=== PATIENT | female | born 1935 | race Caucasian/White ===

== ENCOUNTER → 2016-12-07 | Outpatient (CLI) | payer MEDICARE, OTHER ==
[~2016-12-07] MED LIST: ASPI325T PO; CODCAP PO; KEFL500C7 PO; LISI10TA4 PO; LORT5TAB PO
--- NOTE | 2016-12-07 09:34 | REP ---
ULTRASOUND ABDOMINAL AORTA: Real-time sonographic evaluation of the abdominal aorta performed. There is no sonographic evidence of abdominal aortic aneurysm. Maximum AP diameter of the proximal abdominal aorta is 2.2 cm with same diameter in the mid abdominal aorta. Distal abdominal aorta just above the bifurcation measuring 2.4 cm in AP dimension. The right common iliac artery measures 1.4 x 1.3 cm and left common iliac artery 1.1 x 1.3 cm. IMPRESSION: No sonographic evidence of abdominal aortic aneurysm. Signed by Talib Ocasio MD 12/07/2016 04:13 P
== END ==
LOC: M RAD 06:15
PROVIDERS: ATTEND Family Medicine
DX: Z82.49 Family history of ischemic heart disease and other diseases of the circulatory system (principal); Z87.891 Personal history of nicotine dependence

== ENCOUNTER → 2017-01-04 | Outpatient (REF) | payer MEDICARE, OTHER ==
[2017-01-04 14:40] LABS: ALBUMIN 3.7 GM/DL (3.2-5.2); ALBUMIN/GLOBULIN RATIO 1.32 (1.00-1.93); BILIRUBIN,TOTAL 0.3 MG/DL (0.2-1.0); CALCIUM LEVEL 8.8 MG/DL (8.8-10.2); CREATININE FOR GFR 1.06 MG/DL (0.55-1.02); POTASSIUM SERUM 3.8 MEQ/L (3.5-5.1); TOTAL PROTEIN 6.5 GM/DL (6.4-8.2)
== END ==
LOC: M SFHCPLAZ 12:05
PROVIDERS: ATTEND Family Medicine
DX: R14.0 Abdominal distension (gaseous) (principal); I87.329 Chronic venous hypertension (idiopathic) with inflammation of unspecified lower extremity; Z85.3 Personal history of malignant neoplasm of breast; I89.0 Lymphedema, not elsewhere classified
CPT/HCPCS: 80053; G0463

== ENCOUNTER → 2017-01-05 | Outpatient (CLI) | payer MEDICARE, OTHER ==
[~2017-01-05] MED LIST changes: +GASTROGRAFIN SOLUTION 30ML (Q9963) As Ordered ONE; +ISOVUE-370 76% 100ML VIAL (Q9967) As Ordered ONE
--- NOTE | 2017-01-05 19:42 | REP ---
CT study abdomen and pelvis without and with IV contrast: With oral contrast: History: Abdominal distension. CT contrast dose: 100 mL of Isovue [address] findings: Digital preliminary chamber magistrate radiograph demonstrates an unremarkable bowel gas pattern. The lung bases are essentially clear. Minimal linear fibrosis on the left. The liver and the spleen are normal in size homogeneous in texture. No adrenal lesion is seen on either side. No pancreatic abnormality is observed. The gallbladder has a Phrygian cap morphology but there is no CT evidence of stone or mass lesion. The kidneys enhance symmetrically and appear morphologically intact. Tiny cortical cysts are seen bilaterally and some vascular calcification is observed. Diffuse vascular calcification is seen in the aorta and its other branches. A normal appendix is observed in the right lower quadrant. Small and large intestinal bowel loops are unremarkable in the upper abdomen. There is no evidence of free intraperitoneal air, abdominal mass or fluid collection. There is extensive diverticulosis in the sigmoid colon. There is no CT evidence of acute diverticulitis. Some large peripherally extending diverticula are seen. Small air-fluid level is seen in large and small intestinal bowel loops in the central abdomen but no obstructive lesion is seen. No abdominal wall defect is observed. Urinary bladder is intact. No uterine or adnexal pathology is appreciated. Impression: Extensive sigmoid colonic diverticulosis without CT evidence of diverticulitis. Otherwise no significant abdominal or pelvic abnormality seen. Signed by Calvin Sidhu MD 01/06/2017 08:56 A
== END ==
LOC: M RAD 15:39
PROVIDERS: ATTEND Family Medicine
DX: K57.30 Diverticulosis of large intestine without perforation or abscess without bleeding (principal)
CPT/HCPCS: 74178; Q9963; Q9967

== ENCOUNTER → 2017-01-12 | Outpatient (CLI) | payer MEDICARE, OTHER ==
[~2017-01-12] MED LIST changes: -GASTROGRAFIN SOLUTION 30ML (Q9963) As Ordered ONE; -ISOVUE-370 76% 100ML VIAL (Q9967) As Ordered ONE
--- NOTE | 2017-01-13 10:41 | DEXA ---
AP SPINE L1 - L4 1.196 0.0 1.5 LT FEMUR TOTAL 0.754 -2.0 -0.2 RT FEMUR TOTAL 0.660 -2.8 -0.9 TOTAL BODY TOTAL OTHER DUAL FEMUR FRAX* ASSESSMENT Risk factors: None. 10 year probability of fracture Major osteoporotic fracture 13.5 % Hip fracture 3.5 % COMMENTS: Normal bone densitometry of the spine. There is low bone density of the hips. The density of the spine has increased 15.9% since 10/13/2002. The density of the left hip has decreased 10.8% since 10/13/2002. The density of the right hip has decreased 15.9% since 10/13/2002. The increased density of the spine does represent a significant change. The decreased density of the left hip does represent a significant change. The decreased density of the right hip does represent a significant change. FOLLOW-UP: Recommendation for the next bone density exam: 2 years. BETZAIDA
== END ==
LOC: M WHC 09:17
PROVIDERS: ATTEND Family Medicine
DX: Z13.820 Encounter for screening for osteoporosis (principal); Z78.0 Asymptomatic menopausal state

== ENCOUNTER → 2017-02-10 | Outpatient (CLI) | payer MEDICARE, OTHER ==
--- NOTE | 2017-02-10 14:49 | REP ---
Whole body radionuclide bone scan: History: History of breast carcinoma, right-sided rib pain, question metastasis. Comparison rib radiographs are from January 29, 2017. Technique: 21.4 mCi technetium 99m MDP is injected and standard whole body radionuclide bone scan images are acquired. Scintigraphic findings: There is a normal distribution of skeletal tracer uptake with visualization of bilateral kidneys and in the urinary bladder. There is mild degenerative uptake in the lumbar spine. No abnormal rib uptake is seen to suggest a metastatic pattern. There is a horizontal band-like distribution of increased uptake in one of the mid-thoracic vertebrae. This appears to be T8. This may relate to degenerative disc disease. The rib series shows a fairly extensive degenerative disc disease at several mid thoracic levels. A wedge compression deformity could have this appearance as well. There is no evidence to suggest metastatic disease. There are arthritic uptake changes in both knees and in the left midfoot as well as in the cervical spine. Impression: No evidence of skeletal metastatic disease. Degenerative and arthritic uptake pattern. Signed by Calvin Sidhu MD 02/10/2017 04:34 P
== END ==
LOC: M RAD 09:14
PROVIDERS: ATTEND Family Medicine
DX: R07.81 Pleurodynia (principal); Z85.3 Personal history of malignant neoplasm of breast
CPT/HCPCS: 78306; A9503

== ENCOUNTER → 2017-10-20 | Outpatient (REF) | payer MEDICARE, OTHER | LOC: M SFHCCAPE 17:01 | DX: J02.9 Acute pharyngitis, unspecified (principal) ==

== ENCOUNTER → 2018-02-24 | Outpatient (REF) | payer MEDICARE, OTHER ==
[2018-02-24 14:18] LABS: APPEARANCE, URINE HAZY (CLEAR); BACTERIA, URINE AUTO NEGATIVE (NEGATIVE); BILIRUBIN, URINE AUTO NEGATIVE (NEGATIVE); BLOOD, URINE BLOOD NEGATIVE (NEGATIVE); COLOR, URINE YELLOW (YELLOW); GLUCOSE, URINE (UA) AUTO 1+ mg/dL (NEGATIVE); KETONE, URINE AUTO NEGATIVE (NEGATIVE); LEUKOCYTE ESTERASE, URINE AUTO NEGATIVE (NEGATIVE); MUCUS, URINE SMALL (NEGATIVE); NITRITE, URINE AUTO NEGATIVE (NEGATIVE); PROTEIN, URINE AUTO NEGATIVE (NEGATIVE); RBC, URINE AUTO 0 /HPF (0-3); SPECIFIC GRAVITY URINE AUTO 1.011 (1.002-1.035); SQUAMOUS EPITHELIAL CELL UR AU 0 /HPF (0-6); UROBILINOGEN, URINE AUTO 0.2 mg/dL (0.0-2.0); WBC, URINE AUTO 1 /HPF (0-3)
== END ==
LOC: M SFHCCAPE 10:58
DX: R58 Hemorrhage, not elsewhere classified (principal); N89.8 Other specified noninflammatory disorders of vagina; Z12.4 Encounter for screening for malignant neoplasm of cervix; R14.0 Abdominal distension (gaseous); R10.11 Right upper quadrant pain; R05 Cough; R19.4 Change in bowel habit; I10 Essential (primary) hypertension
CPT/HCPCS: 81001

== ENCOUNTER → 2018-03-03 | Outpatient (REF) | payer MEDICARE, OTHER ==
[2018-03-03 18:51] LABS: BLOOD UREA NITROGEN 39 MG/DL (7-18)
[2018-03-03 18:51] LABS: GLOMERULAR FILTRATION RATE 41.7 (>32)
== END ==
LOC: M SFHCCAPE 09:32
DX: R58 Hemorrhage, not elsewhere classified (principal); R19.4 Change in bowel habit; I10 Essential (primary) hypertension; R05 Cough; R14.0 Abdominal distension (gaseous); R10.11 Right upper quadrant pain
CPT/HCPCS: 82565

== ENCOUNTER → 2018-03-10 | Outpatient (CLI) | payer MEDICARE, OTHER ==
[~2018-03-10] MED LIST changes: -ASPI325T PO; -CODCAP PO; +GASTROGRAFIN SOLUTION 30ML (Q9963) As Ordered; +ISOVUE-370 76% 100ML VIAL (Q9967) As Ordered; -KEFL500C7 PO; -LISI10TA4 PO; -LORT5TAB PO
[2018-03-10 11:06] LABS: ESTIMATED AVERAGE GLUCOSE 186 MG/DL (60-110); HEMOGLOBIN A1c 8.1 %
== END ==
LOC: M LAB 10:02
DX: R14.0 Abdominal distension (gaseous) (principal); R10.11 Right upper quadrant pain; R81 Glycosuria; R58 Hemorrhage, not elsewhere classified
CPT/HCPCS: Q9963

== ENCOUNTER → 2018-03-17 | Outpatient (CLI) | payer MEDICARE, OTHER | LOC: M RAD 12:39 | DX: N85.2 Hypertrophy of uterus (principal) | CPT/HCPCS: 76856 ==

== ENCOUNTER 2018-05-30 06:36 | Day surgery (SDC) | payer MEDICARE, OTHER ==
[~2018-05-30 06:36] MED LIST changes: -GASTROGRAFIN SOLUTION 30ML (Q9963) As Ordered; -ISOVUE-370 76% 100ML VIAL (Q9967) As Ordered; +NS 1,000 ML IV
[2018-05-30] MEDS ORDERED: SIMETHICONE 40MG/0.6ML DROPS 30ML As Ordered (06:54)
[2018-05-30] MEDS ORDERED: LIDOCAINE 2% INJ 100 MG/5 ML SDV (FOR ANES.) As Ordered (07:45)
[2018-05-30] MEDS ORDERED: PROPOFOL 200 MG/20 ML VIAL As Ordered (07:45)
== END 2018-05-30 08:31 | disposition home or self-care (01) ==
LOC: M OPP 06:36
DX: Z12.11 Encounter for screening for malignant neoplasm of colon (principal); K59.00 Constipation, unspecified; K64.8 Other hemorrhoids; K57.30 Diverticulosis of large intestine without perforation or abscess without bleeding; I10 Essential (primary) hypertension; R73.03 Prediabetes; Z85.3 Personal history of malignant neoplasm of breast; Z87.891 Personal history of nicotine dependence; Z79.82 Long term (current) use of aspirin; Z79.899 Other long term (current) drug therapy; Z90.11 Acquired absence of right breast and nipple
CPT/HCPCS: G0105

== ENCOUNTER → 2018-06-16 | Outpatient (REF) | payer MEDICARE, OTHER ==
[2018-06-16 15:26] LABS: FERRITIN 87 NG/ML (8-252); IRON (FE) 58 UG/DL (50-170); TOTAL IRON BINDING CAPACITY 321 UG/DL (250-450); TOTAL PROTEIN 7.1 GM/DL (6.4-8.2)
[2018-06-16 16:00] LABS: FOLATE 7.4 NG/ML
[2018-06-16 17:18] LABS: PERCENT SATURATION 18.1 % (13.2-45.0)
[2018-06-16 17:39] LABS: RETIC HEMOGLOBIN EQUIVALENT 31.2 pg (24-36); RETICULOCYTE # 76.4 10^9/L (17-77); RETICULOCYTE % 1.8 % (0.5-1.5)
[2018-06-17 08:06] LABS: HAPTOGLOBIN 119 mg/dL (34-200)
[2018-06-20 15:22] LABS: ALBUMIN % 59.1 % (55.8-66.1); ALPHA-1-GLOBULIN % 4.1 % (2.9-4.9); ALPHA-1-GLOBULINS 0.29 GM/DL (0.17-0.41); ALPHA-2-GLOBULINS 0.79 GM/DL (0.42-0.99); ALPHA-2-GLOBULINS % 11.1 % (7.1-11.8); BETA-1-GLOBULINS 0.48 GM/DL (0.28-0.60); BETA-1-GLOBULINS % 6.8 % (4.7-7.2); BETA-2-GLOBULINS 0.39 GM/DL (0.19-0.55); BETA-2-GLOBULINS % 5.5 % (3.2-6.5); GAMMA GLOBULIN % 13.4 % (11.1-18.8); GAMMA GLOBULINS 0.95 GM/DL (0.65-1.58)
== END ==
LOC: M LAB REF 12:47
DX: C50.311 Malignant neoplasm of lower-inner quadrant of right female breast (principal); Z79.811 Long term (current) use of aromatase inhibitors; M81.0 Age-related osteoporosis without current pathological fracture
CPT/HCPCS: 82746

== ENCOUNTER → 2018-06-21 | Outpatient (REF) | payer MEDICARE, OTHER ==
[2018-06-21 18:26] LABS: ALBUMIN 3.8 GM/DL (3.2-5.2); ALBUMIN/GLOBULIN RATIO 1.19 (1.00-1.93); ALKALINE PHOSPHATASE 74 U/L (45-117); ALT/SGPT 23 U/L (12-78); ANION GAP 9 MEQ/L (8-16); AST/SGOT 21 U/L (7-37); BILIRUBIN,TOTAL 0.3 MG/DL (0.2-1.0); BLOOD UREA NITROGEN 33 MG/DL (7-18); CARBON DIOXIDE LEVEL 29 MEQ/L (21-32); CHLORIDE LEVEL 101 MEQ/L (98-107); CHOLESTEROL LEVEL 192 MG/DL (<200); CHOLESTEROL RISK RATIO 5.485 (<5); CREATININE FOR GFR 1.25 MG/DL (0.55-1.30); GLOMERULAR FILTRATION RATE 43.6 (>32); GLUCOSE, FASTING 143 MG/DL (70-100); HDL CHOLESTEROL 35 MG/DL (>40); LDL CHOLESTEROL 87 MG/DL (<100); NON-HDL-C 157 MG/DL; POTASSIUM SERUM 4.1 MEQ/L (3.5-5.1); SODIUM LEVEL 139 MEQ/L (136-145); TRIGLYCERIDES LEVEL 352 MG/DL (<150)
[2018-06-21 18:27] LABS: ESTIMATED AVERAGE GLUCOSE 143 MG/DL (60-110); HEMOGLOBIN A1c 6.6 %
[2018-06-21 18:32] LABS: CREATININE, URINE 42.2 MG/DL; MALB URINE SIEMENS < 5.0 MG/L
[2018-06-21 18:46] LABS: MAU/CREAT RATIO 11.8 MCG/MG (0.0-30.0)
== END ==
LOC: M SFHCCAPE 07:05
DX: E11.65 Type 2 diabetes mellitus with hyperglycemia (principal)
CPT/HCPCS: 80053

== ENCOUNTER → 2018-06-27 | Outpatient (REF) | payer MEDICARE, OTHER ==
[2018-06-27 18:54] LABS: APPEARANCE, URINE HAZY (CLEAR); BACTERIA, URINE AUTO 1+ (NEGATIVE); BILIRUBIN, URINE AUTO NEGATIVE (NEGATIVE); BLOOD, URINE BLOOD NEGATIVE (NEGATIVE); COLOR, URINE STRAW (YELLOW); GLUCOSE, URINE (UA) AUTO NEGATIVE (NEGATIVE); KETONE, URINE AUTO NEGATIVE (NEGATIVE); LEUKOCYTE ESTERASE, URINE AUTO NEGATIVE (NEGATIVE); MUCUS, URINE SMALL (NEGATIVE); NITRITE, URINE AUTO NEGATIVE (NEGATIVE); PROTEIN, URINE AUTO NEGATIVE (NEGATIVE); RBC, URINE AUTO 0 /HPF (0-3); SPECIFIC GRAVITY URINE AUTO 1.006 (1.002-1.035); SQUAMOUS EPITHELIAL CELL UR AU 0 /HPF (0-6); UROBILINOGEN, URINE AUTO 0.2 mg/dL (0.0-2.0); WBC, URINE AUTO 0 /HPF (0-3)
== END ==
LOC: M SFHCCAPE 08:56
DX: N89.8 Other specified noninflammatory disorders of vagina (principal); I10 Essential (primary) hypertension; E11.65 Type 2 diabetes mellitus with hyperglycemia; E78.1 Pure hyperglyceridemia
CPT/HCPCS: 81001

== ENCOUNTER → 2018-08-24 | Outpatient (CLI) | payer MEDICARE, OTHER | LOC: M CLY 09:32 | DX: R07.81 Pleurodynia (principal) | CPT/HCPCS: 71111 ==

== ENCOUNTER → 2018-09-29 | Outpatient (REF) | payer MEDICARE, OTHER ==
[~2018-09-29] MED LIST changes: +ASPI325T PO; +CALCTAB41 PO; +CODCAP4 PO; +HYDR12.55 PO; +KEFL500C17 PO; +LETR2.5T2 PO; +LISI10TA4 PO; +LORT5TAB PO; -NS 1,000 ML IV; +TELM1TAB PO; +VITA200038 PO
[2018-09-29 16:57] LABS: ALBUMIN 3.7 GM/DL (3.2-5.2); BILIRUBIN,TOTAL 0.3 MG/DL (0.2-1.0); CHOLESTEROL RISK RATIO 6.129 (<5); CREATININE FOR GFR 1.4 MG/DL (0.55-1.30); GLOMERULAR FILTRATION RATE 38.2 (>32); POTASSIUM SERUM 3.7 MEQ/L (3.5-5.1)
[2018-09-29 17:29] LABS: HEMOGLOBIN A1c 7.4 %
== END ==
LOC: M SFHCCAPE 07:11
PROVIDERS: ATTEND Physician Assistant
DX: I10 Essential (primary) hypertension (principal); E11.65 Type 2 diabetes mellitus with hyperglycemia

== ENCOUNTER → 2018-12-13 | Outpatient (CLI) | payer MEDICARE, OTHER ==
[~2018-12-13] MED LIST changes: +FLUC10TA PO; +LOTRCRE TOP
--- NOTE | 2018-12-13 14:19 | REP ---
RIGHT HIP, TWO VIEWS: HISTORY: Hip pain. There is no acute fracture or dislocation. There is severe narrowing of the joint space with associated sclerosis. The bony structure is osteopenic. IMPRESSION: Degenerative change as described above. Electronically Signed by Nathanael Villa MD 12/13/2018 02:22 P
== END ==
LOC: M RAD 13:09
PROVIDERS: ATTEND Internal Medicine Hematology & Oncology
DX: M16.11 Unilateral primary osteoarthritis, right hip (principal); Z85.3 Personal history of malignant neoplasm of breast

== ENCOUNTER → 2018-12-27 | Outpatient (REF) | payer MEDICARE, OTHER ==
[~2018-12-27] MED LIST changes: +ASPI-1 PO; -ASPI325T PO
[2018-12-27 19:22] LABS: ALBUMIN 3.9 GM/DL (3.2-5.2); BILIRUBIN,TOTAL 0.3 MG/DL (0.2-1.0); CALCIUM LEVEL 9.7 MG/DL (8.8-10.2); CHOLESTEROL RISK RATIO 5.885 (<5); CREATININE FOR GFR 1.34 MG/DL (0.55-1.30); GLOMERULAR FILTRATION RATE 40.2 (>32); POTASSIUM SERUM 4.1 MEQ/L (3.5-5.1)
[2018-12-27 19:27] LABS: TOTAL 25(OH) VITAMIN D 45.1 NG/ML (30.0-100.0)
[2018-12-27 19:41] LABS: HEMOGLOBIN A1c 7.3 %
[2018-12-27 19:43] LABS: BASO # 0.1 10^3/uL (0.0-0.2); BASO % 1.3 % (0.0-1.0); EOS # 0.3 10^3/uL (0.0-0.50); EOS % 3.4 % (0.0-3.0); HEMATOCRIT 37.5 % (36.0-47.0); HEMOGLOBIN 12.3 g/dl (12.0-15.5); LYMPH # 2.3 10^3/uL (1.5-4.5); LYMPH % 27.1 % (24.0-44.0); MEAN CORPUSCULAR HEMOGLOBIN 28.5 pg (27.0-33.0); MEAN CORPUSCULAR HGB CONC 32.8 g/dl (32.0-36.5); MEAN CORPUSCULAR VOLUME 86.8 fl (80.0-96.0); MONO # 0.7 10^3/uL (0.0-0.8); MONO % 8.6 % (0.0-5.0); NEUTROPHILS % 58.5 % (36.0-66.0); PLATELET COUNT, AUTOMATED 198 10^3/uL (150-450); RED BLOOD COUNT 4.32 10^6/uL (4.00-5.40); WHITE BLOOD COUNT 8.5 10^3/uL (4.0-10.0)
[2018-12-27 19:45] LABS: MALB URINE SIEMENS 12.9 MG/L
== END ==
LOC: M SFHCCAPE 07:05
PROVIDERS: ATTEND Physician Assistant
DX: I10 Essential (primary) hypertension (principal); E11.65 Type 2 diabetes mellitus with hyperglycemia; E78.1 Pure hyperglyceridemia; M81.0 Age-related osteoporosis without current pathological fracture

== ENCOUNTER → 2019-04-18 | Outpatient (REF) | payer MEDICARE, OTHER ==
[2019-04-18 16:52] LABS: ALBUMIN 3.5 GM/DL (3.2-5.2); BILIRUBIN,TOTAL 0.3 MG/DL (0.2-1.0); CALCIUM LEVEL 10.2 MG/DL (8.8-10.2); CHOLESTEROL RISK RATIO 5.485 (<5); CREATININE FOR GFR 1.38 MG/DL (0.55-1.30); GLOMERULAR FILTRATION RATE 38.8 (>32)
[2019-04-18 18:17] LABS: HEMOGLOBIN A1c 7.4 %
== END ==
LOC: M SFHCCAPE 06:57
PROVIDERS: ATTEND Physician Assistant
DX: I10 Essential (primary) hypertension (principal); E11.65 Type 2 diabetes mellitus with hyperglycemia; E78.2 Mixed hyperlipidemia

== ENCOUNTER → 2019-05-02 | Outpatient (REF) | payer MEDICARE, OTHER ==
[2019-05-03 17:53] LABS: APPEARANCE, URINE CLEAR (CLEAR); BACTERIA, URINE AUTO NEGATIVE (NEGATIVE); BILIRUBIN, URINE AUTO NEGATIVE (NEGATIVE); BLOOD, URINE BLOOD NEGATIVE (NEGATIVE); COLOR, URINE YELLOW (YELLOW); GLUCOSE, URINE (UA) AUTO NEGATIVE (NEGATIVE); KETONE, URINE AUTO NEGATIVE (NEGATIVE); LEUKOCYTE ESTERASE, URINE AUTO TRACE (NEGATIVE); NITRITE, URINE AUTO NEGATIVE (NEGATIVE); PROTEIN, URINE AUTO NEGATIVE (NEGATIVE); RBC, URINE AUTO 0 /HPF (0-3); SPECIFIC GRAVITY URINE AUTO 1.011 (1.002-1.035); SQUAMOUS EPITHELIAL CELL UR AU 0 /HPF (0-6); UROBILINOGEN, URINE AUTO 0.2 mg/dL (0.0-2.0); WBC, URINE AUTO 1 /HPF (0-3)
== END ==
LOC: M SFHCCAPE 14:00
PROVIDERS: ATTEND Physician Assistant
DX: M54.5 Low back pain (principal)
CPT/HCPCS: 81001; 81002; 87086; G0463

== ENCOUNTER → 2019-05-03 | Outpatient (CLI) | payer MEDICARE, OTHER ==
[~2019-05-03] MED LIST changes: -CODCAP4 PO; +CODCAP5 PO
--- NOTE | 2019-05-03 08:31 | REP ---
A [facility] lumbar spine five views for acute right sided low back pain without sciatica: There are no comparisons. There is demineralization. No Vertebral body heights and alignment are normal. There is degenerative disc disease at every lumbar level, most advanced at L4-5. There is calcified atheroma in the abdominal aorta. The AP diameter. The abdominal aorta at the L4 level is 3.3 centimeters indicating aneurysm. There is no spondylolysis. There is no spondylolisthesis. There is facet osteoarthritis. The pedicles are unremarkable. There is mild sacroiliac osteoarthritis. There is osteoarthritis of the hips bilaterally. Impression: Demineralization. Multilevel degenerative disc disease as described. Facet osteoarthritis. Sacroiliac osteoarthritis. Bilateral hip osteoarthritis. 3.3 cm abdominal aortic aneurysm. Electronically Signed by Talib Henriquez MD 05/03/2019 08:22 A
--- NOTE | 2019-05-03 08:31 | REP ---
Right hip two views: There is marked joint space narrowing and there is osteophytic formation indicating osteoarthritis. There is no femoral head deformity. There is mild osteoarthritis of the right side articulation. There is demineralization. The pubic symphysis appears fused. There are no calcifications or foreign bodies. Impression: Right hip osteoarthritis. Right sacroiliac joint osteoarthritis. Demineralization. The pubic symphysis appears fused. Electronically Signed by Talib Henriquez MD 05/03/2019 08:22 A
== END ==
LOC: M CLY 07:42
PROVIDERS: ATTEND Physician Assistant
DX: M54.5 Low back pain (principal)

== ENCOUNTER → 2019-07-20 | Outpatient (REF) | payer MEDICARE, OTHER ==
[2019-07-20 16:33] LABS: BASO # 0.1 10^3/uL (0.0-0.2); EOS # 0.3 10^3/uL (0.0-0.5); EOS % 3.6 % (0.0-3.0); HEMATOCRIT 35.6 % (36.0-47.0); HEMOGLOBIN 11.4 g/dl (12.0-15.5); LYMPH # 2.1 10^3/uL (1.5-5.0); LYMPH % 22.9 % (24.0-44.0); MEAN CORPUSCULAR HEMOGLOBIN 28.3 pg (27.0-33.0); MEAN CORPUSCULAR VOLUME 88.3 fl (80.0-96.0); MONO # 0.8 10^3/uL (0.0-0.8); MONO % 9.2 % (0.0-5.0); NEUTROPHILS # 5.7 10^3/uL (1.5-8.5); NEUTROPHILS % 62.6 % (36.0-66.0); PLATELET COUNT, AUTOMATED 193 10^3/uL (150-450); RED BLOOD COUNT 4.03 10^6/uL (4.00-5.40); WHITE BLOOD COUNT 9.1 10^3/uL (4.0-10.0)
[2019-07-20 16:49] LABS: ALBUMIN 3.6 GM/DL (3.2-5.2); BILIRUBIN,TOTAL 0.4 MG/DL (0.2-1.0); CALCIUM LEVEL 9.7 MG/DL (8.8-10.2); CHOLESTEROL RISK RATIO 5.235 (<5); CREATININE FOR GFR 1.21 MG/DL (0.55-1.30); GLOMERULAR FILTRATION RATE 45.1 (>32); POTASSIUM SERUM 3.8 MEQ/L (3.5-5.1); THYROID STIMULATING HORMONE 2.43 uIU/ML (0.358-3.740); TOTAL 25(OH) VITAMIN D 41.8 NG/ML (30.0-100.0)
== END ==
LOC: M SFHCCAPE 06:59
PROVIDERS: ATTEND Physician Assistant
DX: I10 Essential (primary) hypertension (principal); E11.65 Type 2 diabetes mellitus with hyperglycemia; M81.0 Age-related osteoporosis without current pathological fracture

== ENCOUNTER → 2019-08-02 | Outpatient (CLI) | payer MEDICARE, OTHER ==
--- NOTE | 2019-08-02 08:46 | REP ---
Clinical: Screening for abdominal aortic aneurysm. Technique: Real time adhikari scale ultrasound examination using curved array transducer. Findings: Abdominal aorta demonstrates moderate atheromatous plaquing and mild ectasia is suggested without evidence for aneurysm. No periaortic fluid collections are identified. Proximal aorta 2.2 x 2.7 cm. Mid aorta (renal artery level) 2.2 x 2.8 cm. Mid aorta 2.8 x 2.3 cm. Distal aorta 2.3 x 2.6 cm. Right common iliac artery 1.5 cm maximal diameter. Left common iliac artery 1.9 cm maximal diameter. Impression: Atheromatous plaquing an generalized ectasia to the aorta without discrete aneurysm. Electronically Signed by Rickie Rodriges MD 08/02/2019 08:37 A
== END ==
LOC: M RAD 07:08
PROVIDERS: ATTEND Physician Assistant
DX: I71.4 Abdominal aortic aneurysm, without rupture (principal)

== ENCOUNTER → 2019-11-09 | Outpatient (REF) | payer MEDICARE, OTHER ==
[~2019-11-09] MED LIST changes: -TELM1TAB PO; +TELM1TAB35 PO
[2019-11-09 16:44] LABS: BASO # 0.1 10^3/uL (0.0-0.2); BASO % 1.1 % (0.0-1.0); EOS # 0.3 10^3/uL (0.0-0.5); EOS % 3.9 % (0.0-3.0); HEMOGLOBIN 11.5 g/dl (12.0-15.5); LYMPH # 1.9 10^3/uL (1.5-5.0); LYMPH % 26.5 % (24.0-44.0); MEAN CORPUSCULAR HEMOGLOBIN 28.4 pg (27.0-33.0); MEAN CORPUSCULAR HGB CONC 32.9 g/dl (32.0-36.5); MEAN CORPUSCULAR VOLUME 86.4 fl (80.0-96.0); MONO # 0.7 10^3/uL (0.0-0.8); MONO % 10.2 % (0.0-5.0); NEUTROPHILS # 4.2 10^3/uL (1.5-8.5); NEUTROPHILS % 57.3 % (36.0-66.0); PLATELET COUNT, AUTOMATED 177 10^3/uL (150-450); RED BLOOD COUNT 4.05 10^6/uL (4.00-5.40); WHITE BLOOD COUNT 7.3 10^3/uL (4.0-10.0)
[2019-11-09 16:51] LABS: ALBUMIN 3.6 GM/DL (3.2-5.2); BILIRUBIN,TOTAL 0.4 MG/DL (0.2-1.0); CALCIUM LEVEL 9.1 MG/DL (8.8-10.2); CHOLESTEROL RISK RATIO 5.911 (<5); CREATININE FOR GFR 1.31 MG/DL (0.55-1.30); GLOMERULAR FILTRATION RATE 41.2 (>32); POTASSIUM SERUM 3.6 MEQ/L (3.5-5.1)
[2019-11-09 17:17] LABS: HEMOGLOBIN A1c 7.4 %
== END ==
LOC: M SFHCCAPE 06:57
PROVIDERS: ATTEND Physician Assistant
DX: E11.65 Type 2 diabetes mellitus with hyperglycemia (principal)

== ENCOUNTER 2019-12-12 09:59 | Inpatient (IN) | payer OTHER, MEDICARE ==
[~2019-12-12] VITALS: Ht 162.6 cm; Wt 74.8 kg
[2019-12-12] MEDS ORDERED: ONDANSETRON 4MG/2ML VIAL (J2405) IV ONE (10:15)
[2019-12-12] MEDS: MORPHINE 2 MG/ML 1ML VIAL (J2270) IV PRN ×5 (10:29→23:33)
[2019-12-12 10:33] LABS: BASO # 0.1 10^3/uL (0.0-0.2); BASO % 0.5 % (0.0-1.0); EOS # 0.1 10^3/uL (0.0-0.5); EOS % 1.1 % (0.0-3.0); HEMATOCRIT 37.7 % (36.0-47.0); HEMOGLOBIN 12.4 g/dl (12.0-15.5); LYMPH # 1.7 10^3/uL (1.5-5.0); LYMPH % 13.6 % (24.0-44.0); MEAN CORPUSCULAR HEMOGLOBIN 28.1 pg (27.0-33.0); MEAN CORPUSCULAR HGB CONC 32.9 g/dl (32.0-36.5); MEAN CORPUSCULAR VOLUME 85.3 fl (80.0-96.0); MONO # 0.5 10^3/uL (0.0-0.8); MONO % 4.1 % (0.0-5.0); NEUTROPHILS # 9.6 10^3/uL (1.5-8.5); NEUTROPHILS % 78.7 % (36.0-66.0); PLATELET COUNT, AUTOMATED 190 10^3/uL (150-450); RED BLOOD COUNT 4.42 10^6/uL (4.00-5.40); WHITE BLOOD COUNT 12.2 10^3/uL (4.0-10.0)
[2019-12-12] MEDS ORDERED: ISOVUE-370 76% 100ML VIAL (Q9967) As Ordered ONE (10:39)
[2019-12-12 10:44] LABS: INR 1.05; PROTHROMBIN TIME 13.4 SECONDS (11.8-14.0)
[2019-12-12 10:45] LABS: PARTIAL THROMBOPLASTIN TIME 25.9 SECONDS (25.0-38.4)
--- NOTE | 2019-12-12 10:52 | REP ---
Portable AP pelvis, two views: Comparison is a right hip study dated 05/03/2019. No pelvic fractures are identified, however, the study is underpenetrated. There is advanced bilateral hip osteoarthritis. Impression: No gross evidence of pelvic fracture. Bilateral advanced hip osteoarthritis. Electronically Signed by Talib Henriquez MD 12/12/2019 10:43 A
[2019-12-12 11:03] LABS: ALBUMIN 3.7 GM/DL (3.2-5.2); ALT/SGPT 30 U/L (12-78); AMYLASE 72 U/L (25-115); BILIRUBIN,DIRECT < 0.1 MG/DL (0.0-0.2); BILIRUBIN,TOTAL 0.4 MG/DL (0.2-1.0); BLOOD UREA NITROGEN 36 MG/DL (7-18); CALCIUM LEVEL 10.7 MG/DL (8.8-10.2); CARBON DIOXIDE LEVEL 29 MEQ/L (21-32); CHLORIDE LEVEL 102 MEQ/L (98-107); CK-MB VALUE MASS 1.9 NG/ML (<3.6); CPK CREATINE PHOSPHOKINASE 103 U/L (26-192); CREATININE FOR GFR 1.29 MG/DL (0.55-1.30); GLOMERULAR FILTRATION RATE 41.9 (>32); GLUCOSE, FASTING 236 MG/DL (70-100); LIPASE 125 U/L (73-393); MB/CK RELATIVE INDEX 1.84 (< OR =4); POTASSIUM SERUM 3.4 MEQ/L (3.5-5.1); SODIUM LEVEL 139 MEQ/L (136-145); TROPONIN I < 0.02 NG/ML (< 0.10)
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
--- NOTE | 2019-12-12 11:32 | REP ---
Portable chest, single AP view with the patient supine: Comparison is the PA and lateral chest of 04/18/2015. The the patient is rotated. Cardiac size and mediastinum are accentuated by patient positioning. There is a soft tissue density in the right paratracheal area, similar to the comparison study, possibly from an enlarged thyroid. No pneumothorax or hemothorax is identified, however, the study is somewhat less sensitive as the patient supine. No gross evidence of rib fracture is identified. There is mild diffuse interstitial coarsening, nonspecific, possibly artifact from supine positioning. Impression: Patient rotated. No definite pneumothorax, hemothorax or pulmonary contusion of the study is somewhat less sensitive as the patient supine. Mild diffuse interstitial coarsening, possibly artifact from supine positioning. Chronic right paratracheal soft tissue density, possibly from an enlarged thyroid. This was also present on the comparison study. Electronically Signed by Talib Henriquez MD 12/12/2019 11:24 A
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
--- NOTE | 2019-12-12 11:33 | REP ---
CT of the chest with IV contrast: There are no comparison chest CT studies. There is no pneumothorax, hemothorax or pulmonary contusion. There is a curvilinear density in the left lower lobe compatible with parenchymal scar. There are is no mediastinal hematoma. The thoracic aorta is unremarkable except for calcified atheroma. Cardiac size is normal. There is no pericardial effusion. There is calcified atheroma in the coronary arteries. There are nondisplaced fractures of the left fourth and fifth ribs anteriorly. There are no vertebral compression deformities. No vertebral listhesis. No clavicle or scapular fractures. Impression: There are nondisplaced fractures of the left fourth and fifth ribs anteriorly. There is no pneumothorax, hemothorax or pulmonary contusion. No mediastinal hematoma. Thoracic aorta is unremarkable except for calcified atheroma. Electronically Signed by Talib Henriquez MD 12/12/2019 11:24 A
--- NOTE | 2019-12-12 11:55 | REP ---
CT of the abdomen and pelvis with IV contrast, without bowel contrast: Comparison is 03/10/2018. The visualized lower lung trent demonstrate a curvilinear scar in the left lower lobe and minor discoid atelectasis at the inferior tip of the lingula . There is no hemoperitoneum. There is no pneumoperitoneum. The hepatic parenchyma is homogeneous. The gallbladder and pancreas are unremarkable. There is a small 13 x 15 mm hypodensity in the spleen as a change from the prior study, possibly a small splenic hematoma. There is no perisplenic hemoperitoneum. The adrenals are unremarkable. The kidneys are unremarkable. There is no pararenal hematoma. The abdominal aorta is unremarkable. There is no periaortic hematoma. No aortic aneurysm. There is calcified vascular atheroma. There is no bowel distension or obstruction. The cecum is on a redundant mesentery and the cecum and appendix are located just to the left of the mid abdomen above anterior to the sigmoid colon and bladder. There is no focal or diffuse bowel wall thickening. No mesenteric inflammation or contusion. Pelvis: There is no free fluid. There is diverticulosis without diverticulitis. The bladder is distended but otherwise unremarkable. The uterus and adnexa are unremarkable. There is grade 1 compression deformity of the L1 vertebral body with retropulsion. There is a nondisplaced fracture of the L2 left transverse process. There is advanced degenerative disc disease at L 03/04 L4-5. No sacral fracture. No iliac wing fracture. No acetabular fracture. No pubic symphysis or ischial fractures. There is advanced osteoarthritis of the hips. Impression: There is no hemoperitoneum or pneumoperitoneum. Probable small 13 by 15 mm splenic hematoma. No perisplenic hemoperitoneum. Diverticulosis without diverticulitis. Cecum on a redundant mesentery of the cecum and appendix just to the left of midline but otherwise unremarkable. Grade 1 compression fracture of the L1 vertebral body with retropulsion. Nondisplaced fracture of the L2 left transverse process. Advanced bilateral hip osteoarthritis. Electronically Signed by Talib Henriquez MD 12/12/2019 11:47 A
--- NOTE | 2019-12-12 12:41 | REP ---
Left wrist two views: There is soft tissue edema posterior to the carpus. No fracture or dislocation are identified. There is no radiopaque foreign body. There is osteoarthritis at the thumb trapezial metacarpal articulation. Electronically Signed by Talib Henriquez MD 12/12/2019 12:32 P
[2019-12-12] MEDS ORDERED: VITAD1000T PO (13:10)
[2019-12-12] MEDS ORDERED: [UNRECOGNIZED DRUG - OTHER] PO (13:10)
[2019-12-12] MEDS ORDERED: OYST1TAB5 PO (13:10)
[2019-12-12] MEDS ORDERED: PERCOCET 5MG/325MG TAB PO PRN (14:00)
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
[2019-12-12 16:00] VITALS: BP 175/77
[2019-12-12 16:05] VITALS: BP 168/74
[2019-12-12] MEDS: ONDANSETRON 4MG/2ML VIAL (J2405) IV PRN (17:34)
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
[2019-12-12] MEDS ORDERED: GLUCOSE 4 GM CHEW TABLET PO PRN (19:00)
[2019-12-12] MEDS ORDERED: DEXTROSE 50% 50 ML SYRINGE IV PRN (19:00)
[2019-12-12] MEDS ORDERED: GLUCAGON FOR INJ 1 MG VIAL (J1610) SC PRN (19:00)
[2019-12-12 20:00] VITALS: BP 150/70
[2019-12-12] MEDS ORDERED: POTASSIUM CHLORIDE 10 MEQ SR TABLET PO ONE (20:00)
[2019-12-12] MEDS: PERCOCET 5MG/325MG TAB PO PRN (20:23)
[2019-12-12] MEDS: SENNA 8.6 MG TAB (SENOKOT) PO SCH (20:24)
[2019-12-12] MEDS: DOCUSATE SODIUM 100 MG CAP PO SCH (20:24)
[2019-12-12] MEDS: LIDOCAINE 5% (LIDODERM) PATCH TD SCH (20:27)
[2019-12-12] MEDS: HumaLOG INSULIN (NovoLOG) PER UNIT SC SCH (20:34)
[2019-12-13] VITALS: BP 147/68
[2019-12-13] MEDS: MORPHINE 2 MG/ML 1ML VIAL (J2270) IV PRN ×5 (03:41→23:51)
[2019-12-13 04:00] VITALS: BP 143/65
[2019-12-13] MEDS: PERCOCET 5MG/325MG TAB PO PRN ×3 (05:06→18:25)
[2019-12-13 05:48] LABS: BASO # 0.1 10^3/uL (0.0-0.2); BASO % 0.4 % (0.0-1.0); EOS # 0.1 10^3/uL (0.0-0.5); EOS % 0.6 % (0.0-3.0); HEMATOCRIT 34.4 % (36.0-47.0); HEMOGLOBIN 11.4 g/dl (12.0-15.5); LYMPH # 0.9 10^3/uL (1.5-5.0); LYMPH % 7.3 % (24.0-44.0); MEAN CORPUSCULAR HEMOGLOBIN 27.9 pg (27.0-33.0); MEAN CORPUSCULAR HGB CONC 33.1 g/dl (32.0-36.5); MEAN CORPUSCULAR VOLUME 84.3 fl (80.0-96.0); MONO # 1.1 10^3/uL (0.0-0.8); MONO % 8.6 % (0.0-5.0); NEUTROPHILS # 10.6 10^3/uL (1.5-8.5); NEUTROPHILS % 82.4 % (36.0-66.0); PLATELET COUNT, AUTOMATED 159 10^3/uL (150-450); RED BLOOD COUNT 4.08 10^6/uL (4.00-5.40); WHITE BLOOD COUNT 12.9 10^3/uL (4.0-10.0)
[2019-12-13 06:11] LABS: CALCIUM LEVEL 9.5 MG/DL (8.8-10.2); CREATININE FOR GFR 1.26 MG/DL (0.55-1.30); GLOMERULAR FILTRATION RATE 43.1 (>32); POTASSIUM SERUM 4.1 MEQ/L (3.5-5.1)
[2019-12-13 08:00] VITALS: BP 138/64
[2019-12-13] MEDS: HumaLOG INSULIN (NovoLOG) PER UNIT SC SCH ×4 (08:38→20:46)
[2019-12-13] MEDS: VITAMIN D 1,000 INTERNATIONAL UNITS TABLET PO SCH (08:40)
[2019-12-13] MEDS: hydroCHLOROthiazide 12.5 MG CAPSULE PO SCH (08:41)
[2019-12-13] MEDS: TELMISARTAN 20 MG TAB PO SCH (08:41)
[2019-12-13] MEDS: DOCUSATE SODIUM 100 MG CAP PO SCH ×2 (08:41→20:44)
[2019-12-13] MEDS: LETROZOLE 2.5 MG TAB PO SCH (08:41)
[2019-12-13] MEDS ORDERED: **NOTE PATIENT COMMENT** MISC XX SCH (09:00)
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
[2019-12-13 12:00] VITALS: BP 180/80
[2019-12-13] MEDS ORDERED: SLF 3 ML SYR IV PRN (12:00)
[2019-12-13] MEDS: SLF 3 ML SYR IV SCH ×2 (12:38→21:50)
[2019-12-13 16:00] VITALS: BP 160/98
[2019-12-13] MEDS: ONDANSETRON 4MG/2ML VIAL (J2405) IV PRN (18:08)
[2019-12-13] MEDS ORDERED: MOM 30ML SUSPENSION UDC PO PRN (19:30)
[2019-12-13 20:00] VITALS: BP 150/72
[2019-12-13] MEDS: SENNA 8.6 MG TAB (SENOKOT) PO SCH (20:44)
[2019-12-13] MEDS: LIDOCAINE 5% (LIDODERM) PATCH TD SCH (20:45)
[2019-12-14] VITALS: BP 168/70
[2019-12-14 04:00] VITALS: BP 140/68
[2019-12-14] MEDS: SLF 3 ML SYR IV SCH (05:52)
[2019-12-14 05:57] LABS: BASO # 0.1 10^3/uL (0.0-0.2); BASO % 0.5 % (0.0-1.0); EOS # 0.1 10^3/uL (0.0-0.5); EOS % 0.8 % (0.0-3.0); HEMATOCRIT 33.4 % (36.0-47.0); HEMOGLOBIN 11.4 g/dl (12.0-15.5); LYMPH % 8.5 % (24.0-44.0); MEAN CORPUSCULAR HEMOGLOBIN 28.1 pg (27.0-33.0); MEAN CORPUSCULAR HGB CONC 34.1 g/dl (32.0-36.5); MEAN CORPUSCULAR VOLUME 82.3 fl (80.0-96.0); MONO % 9.2 % (0.0-5.0); NEUTROPHILS % 80.3 % (36.0-66.0); PLATELET COUNT, AUTOMATED 136 10^3/uL (150-450); RED BLOOD COUNT 4.06 10^6/uL (4.00-5.40); WHITE BLOOD COUNT 11.2 10^3/uL (4.0-10.0)
[2019-12-14] MEDS: PERCOCET 5MG/325MG TAB PO PRN ×2 (06:25→13:27)
[2019-12-14 06:56] LABS: CALCIUM LEVEL 9.1 MG/DL (8.8-10.2); CREATININE FOR GFR 1.07 MG/DL (0.55-1.30); POTASSIUM SERUM 4.3 MEQ/L (3.5-5.1)
[2019-12-14] MEDS: HumaLOG INSULIN (NovoLOG) PER UNIT SC SCH ×3 (07:30→17:01)
[2019-12-14 08:00] VITALS: BP 139/65
[2019-12-14] MEDS: LETROZOLE 2.5 MG TAB PO SCH (09:00)
[2019-12-14] MEDS: hydroCHLOROthiazide 12.5 MG CAPSULE PO SCH (09:00)
[2019-12-14] MEDS: VITAMIN D 1,000 INTERNATIONAL UNITS TABLET PO SCH (09:00)
[2019-12-14] MEDS: TELMISARTAN 20 MG TAB PO SCH (09:00)
[2019-12-14] MEDS: DOCUSATE SODIUM 100 MG CAP PO SCH (09:00)
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
[2019-12-14 12:00] VITALS: BP 147/71
[2019-12-14] MEDS ORDERED: PERCOCET PO (15:58)
[2019-12-14] MEDS ORDERED: SENN18TA PO (15:58)
[2019-12-14] MEDS ORDERED: DOCU100C16 PO (15:58)
[2019-12-14] MEDS ORDERED: LIDO5TD TD (15:58)
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
== END 2019-12-14 17:38 | DRG 347 ==
LOC: M ED 09:59 → EDBD 09:59 → M ED INP 13:52 → ENRESERVDT 15:30 → ENRESERVTM 15:30 → M PCU 16:03
PROVIDERS: ADMIT Internal Medicine Nephrology; ATTEND Internal Medicine Nephrology
DX: S32.011A Stable burst fracture of first lumbar vertebra, initial encounter for closed fracture (principal); S22.42XA Multiple fractures of ribs, left side, initial encounter for closed fracture; E11.9 Type 2 diabetes mellitus without complications; E87.1 Hypo-osmolality and hyponatremia; I10 Essential (primary) hypertension; M81.0 Age-related osteoporosis without current pathological fracture; Z85.3 Personal history of malignant neoplasm of breast; Z90.11 Acquired absence of right breast and nipple; Z90.12 Acquired absence of left breast and nipple; R41.0 Disorientation, unspecified; V48.5XXA Car driver injured in noncollision transport accident in traffic accident, initial encounter; Z79.82 Long term (current) use of aspirin; Z79.899 Other long term (current) drug therapy; Z91.048 Other nonmedicinal substance allergy status; S32.021A Stable burst fracture of second lumbar vertebra, initial encounter for closed fracture

== ENCOUNTER 2019-12-14 16:03 | Inpatient (IN) | payer OTHER, MEDICARE ==
[~2019-12-14] VITALS: Ht 162.6 cm; Wt 80.3 kg
[~2019-12-14 16:03] MED LIST changes: +DOCU100C16 PO; +LIDO5TD TD; +OYST1TAB5 PO; +PERCOCET PO; +SENN18TA PO; +VITAD1000T PO; +[UNRECOGNIZED DRUG - OTHER] PO
[2019-12-14] MEDS ORDERED: GLUCOSE 4 GM CHEW TABLET PO PRN (16:45)
[2019-12-14] MEDS ORDERED: GLUCAGON FOR INJ 1 MG VIAL (J1610) SC PRN (16:45)
[2019-12-14] MEDS ORDERED: oxyCODONE 5MG TAB PO PRN (16:45)
[2019-12-14] MEDS ORDERED: DEXTROSE 50% 50 ML SYRINGE IV PRN (16:45)
[2019-12-14] MEDS: HumaLOG INSULIN (NovoLOG) PER UNIT SC SCH ×2 (17:30→21:00)
[2019-12-14 17:45] VITALS: BP 168/80
[2019-12-14] MEDS ORDERED: OLANZapine INTRAMUSCULAR 10 MG VIAL (S0166) IM ONE (20:15)
[2019-12-14] MEDS ORDERED: LORazepam 0.5 MG TAB PO ONE (20:15)
[2019-12-14] MEDS: REMEDY PHYTOPLEX Z-GUARD PASTE 113GM TUBE (FROM STOREROOM PRODUCT) TOP SCH (21:00)
[2019-12-14] MEDS: LIDOCAINE 5% (LIDODERM) PATCH TD SCH (21:00)
[2019-12-14] MEDS: DOCUSATE SODIUM 100 MG CAP PO SCH (21:00)
[2019-12-14] MEDS: SENNA 8.6 MG TAB (SENOKOT) PO SCH (21:00)
[2019-12-14] MEDS: HEPARIN SOD (PORCINE) 5000 UNITS/ML VIAL (J1644 PER 1000UNITS) SC SCH (21:00)
[2019-12-14] MEDS: ACETAMINOPHEN 500 MG TAB PO SCH (21:00)
[2019-12-15 06:58] VITALS: BP 148/80
[2019-12-15 07:16] LABS: BASO % 0.4 % (0.0-1.0); EOS # 0.1 10^3/uL (0.0-0.5); EOS % 1.1 % (0.0-3.0); HEMATOCRIT 32.2 % (36.0-47.0); HEMOGLOBIN 11.3 g/dl (12.0-15.5); LYMPH # 0.9 10^3/uL (1.5-5.0); MEAN CORPUSCULAR HEMOGLOBIN 28.3 pg (27.0-33.0); MEAN CORPUSCULAR HGB CONC 35.1 g/dl (32.0-36.5); MEAN CORPUSCULAR VOLUME 80.7 fl (80.0-96.0); MONO # 0.9 10^3/uL (0.0-0.8); MONO % 8.1 % (0.0-5.0); NEUTROPHILS # 8.9 10^3/uL (1.5-8.5); NEUTROPHILS % 81.5 % (36.0-66.0); PLATELET COUNT, AUTOMATED 148 10^3/uL (150-450); RED BLOOD COUNT 3.99 10^6/uL (4.00-5.40); WHITE BLOOD COUNT 10.9 10^3/uL (4.0-10.0)
[2019-12-15 07:45] LABS: ALBUMIN 2.8 GM/DL (3.2-5.2); BILIRUBIN,TOTAL 0.7 MG/DL (0.2-1.0); CALCIUM LEVEL 8.8 MG/DL (8.8-10.2); CREATININE FOR GFR 1.08 MG/DL (0.55-1.30); GLOMERULAR FILTRATION RATE 51.5 (>32); POTASSIUM SERUM 4.3 MEQ/L (3.5-5.1); TOTAL PROTEIN 6.6 GM/DL (6.4-8.2)
[2019-12-15] MEDS: HumaLOG INSULIN (NovoLOG) PER UNIT SC SCH ×4 (08:57→21:00)
[2019-12-15] MEDS: ASPIRIN ENTERIC 325 MG TAB PO SCH (08:58)
[2019-12-15] MEDS: PANTOPRAZOLE 40MG TAB (PROTONIX) PO SCH (08:58)
[2019-12-15] MEDS: DOCUSATE SODIUM 100 MG CAP PO SCH ×2 (08:58→21:14)
[2019-12-15] MEDS: ACETAMINOPHEN 500 MG TAB PO SCH ×3 (08:59→21:12)
[2019-12-15] MEDS: TELMISARTAN 20 MG TAB PO SCH (08:59)
[2019-12-15] MEDS: LETROZOLE 2.5 MG TAB PO SCH (08:59)
[2019-12-15] MEDS: VITAMIN D 1,000 INTERNATIONAL UNITS TABLET PO SCH (08:59)
[2019-12-15] MEDS ORDERED: hydroCHLOROthiazide 12.5 MG CAPSULE PO SCH (09:00)
[2019-12-15] MEDS: CALCITONIN NASAL SPRAY 3.7 ML BTL SCH (09:00)
[2019-12-15] MEDS: PROPRANOLOL 10 MG TAB PO SCH ×3 (09:00→21:12)
[2019-12-15] MEDS ORDERED: ASPIRIN 325 MG TAB PEG SCH (09:00)
[2019-12-15] MEDS: REMEDY PHYTOPLEX Z-GUARD PASTE 113GM TUBE (FROM STOREROOM PRODUCT) TOP SCH ×3 (09:00→21:13)
[2019-12-15] MEDS: HEPARIN SOD (PORCINE) 5000 UNITS/ML VIAL (J1644 PER 1000UNITS) SC SCH ×2 (09:00→21:11)
[2019-12-15] MEDS: **NOTE PATIENT COMMENT** MISC XX SCH (09:00)
[2019-12-15] MEDS: SODIUM CHLORIDE 1 GM TAB PO SCH ×3 (12:29→21:12)
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
[2019-12-15 14:00] VITALS: BP 172/74
[2019-12-15] MEDS ORDERED: FLEET ENEMA PR ONE (17:00)
[2019-12-15] MEDS: DULoxetine 30 MG CAP (CYMBALTA) PO SCH (17:04)
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
[2019-12-15 20:26] LABS: CALCIUM LEVEL 8.9 MG/DL (8.8-10.2); CREATININE FOR GFR 1.03 MG/DL (0.55-1.30); GLOMERULAR FILTRATION RATE 54.3 (>32); POTASSIUM SERUM 4.1 MEQ/L (3.5-5.1)
[2019-12-15 21:00] VITALS: BP_SYST 152; BP_SYST 96; BP_DIAS 86
[2019-12-15] MEDS: GABAPENTIN 100 MG CAP PO SCH (21:12)
[2019-12-15] MEDS: SENNA 8.6 MG TAB (SENOKOT) PO SCH (21:12)
[2019-12-15] MEDS: LIDOCAINE 5% (LIDODERM) PATCH TD SCH (21:13)
[2019-12-15] MEDS: BISACODYL 10 MG SUPP PR SCH (21:13)
[2019-12-16] MEDS: HumaLOG INSULIN (NovoLOG) PER UNIT SC SCH ×4 (07:30→23:36)
[2019-12-16 08:00] VITALS: BP 177/77
[2019-12-16] MEDS: REMEDY PHYTOPLEX Z-GUARD PASTE 113GM TUBE (FROM STOREROOM PRODUCT) TOP SCH ×3 (09:00→21:00)
[2019-12-16] MEDS: GABAPENTIN 100 MG CAP PO SCH ×2 (09:00→21:00)
[2019-12-16] MEDS: PANTOPRAZOLE 40MG TAB (PROTONIX) PO SCH (09:00)
[2019-12-16] MEDS: **NOTE PATIENT COMMENT** MISC XX SCH (09:00)
[2019-12-16] MEDS: CALCITONIN NASAL SPRAY 3.7 ML BTL SCH (09:00)
[2019-12-16] MEDS: HEPARIN SOD (PORCINE) 5000 UNITS/ML VIAL (J1644 PER 1000UNITS) SC SCH ×2 (09:00→21:00)
[2019-12-16] MEDS: DULoxetine 30 MG CAP (CYMBALTA) PO SCH (09:00)
[2019-12-16] MEDS: VITAMIN D 1,000 INTERNATIONAL UNITS TABLET PO SCH (09:00)
[2019-12-16] MEDS: DOCUSATE SODIUM 100 MG CAP PO SCH ×3 (09:00→21:00)
[2019-12-16] MEDS: ACETAMINOPHEN 500 MG TAB PO SCH ×3 (09:00→21:00)
[2019-12-16] MEDS: LETROZOLE 2.5 MG TAB PO SCH (09:02)
[2019-12-16] MEDS: TELMISARTAN 20 MG TAB PO SCH (09:02)
[2019-12-16] MEDS: SODIUM CHLORIDE 1 GM TAB PO SCH ×3 (09:02→21:00)
[2019-12-16] MEDS: ASPIRIN ENTERIC 325 MG TAB PO SCH (09:03)
[2019-12-16] MEDS: PROPRANOLOL 10 MG TAB PO SCH ×3 (09:03→21:00)
[2019-12-16 10:58] LABS: BASO % 0.3 % (0.0-1.0); EOS # 0.1 10^3/uL (0.0-0.5); EOS % 0.5 % (0.0-3.0); HEMATOCRIT 30.3 % (36.0-47.0); HEMOGLOBIN 10.6 g/dl (12.0-15.5); LYMPH # 0.5 10^3/uL (1.5-5.0); LYMPH % 4.5 % (24.0-44.0); MEAN CORPUSCULAR VOLUME 79.9 fl (80.0-96.0); MONO # 0.7 10^3/uL (0.0-0.8); MONO % 6.3 % (0.0-5.0); NEUTROPHILS # 9.6 10^3/uL (1.5-8.5); NEUTROPHILS % 87.4 % (36.0-66.0); PLATELET COUNT, AUTOMATED 156 10^3/uL (150-450); RED BLOOD COUNT 3.79 10^6/uL (4.00-5.40)
[2019-12-16 11:06] LABS: OSMOLALITY URINE 551 MOSM/KG (500-800)
[2019-12-16 11:10] LABS: BLOOD UREA NITROGEN 36 MG/DL (7-18); CALCIUM LEVEL 8.4 MG/DL (8.8-10.2); CARBON DIOXIDE LEVEL 34 MEQ/L (21-32); CHLORIDE LEVEL 85 MEQ/L (98-107); CREATININE FOR GFR 0.92 MG/DL (0.55-1.30); GLOMERULAR FILTRATION RATE > 60.0 (>32); GLUCOSE, FASTING 257 MG/DL (70-100); POTASSIUM SERUM 3.9 MEQ/L (3.5-5.1); SODIUM LEVEL 123 MEQ/L (136-145)
[2019-12-16 11:15] LABS: SODIUM,RANDOM URINE 46 MEQ/L
[2019-12-16 14:00] VITALS: BP 141/68
[2019-12-16] MEDS: cefTRIAXone SOD 1 GM in D5W MINI-BAG PLUS 50 ML IV SCH (15:55)
[2019-12-16] MEDS ORDERED: SODIUM CHLORIDE 0.9% 1000ML IV ONE (16:00)
[2019-12-16] MEDS: NS 1,000 ML IV SCH (19:39)
[2019-12-16 20:45] VITALS: BP 148/72
[2019-12-16] MEDS ORDERED: OLANZapine INTRAMUSCULAR 10 MG VIAL (S0166) IM ONE (21:00)
[2019-12-16] MEDS: LIDOCAINE 5% (LIDODERM) PATCH TD SCH (21:00)
[2019-12-16] MEDS: SENNA 8.6 MG TAB (SENOKOT) PO SCH (21:00)
[2019-12-16] MEDS: BISACODYL 10 MG SUPP PR SCH (21:00)
[2019-12-16] MEDS: OLANZapine 5 MG TAB PO SCH (21:00)
[2019-12-17] MEDS: NS 1,000 ML IV SCH ×2 (03:12→11:30)
[2019-12-17 06:00] VITALS: BP 139/64
[2019-12-17] MEDS: HumaLOG INSULIN (NovoLOG) PER UNIT SC SCH ×4 (07:30→21:00)
[2019-12-17 07:40] LABS: HEMATOCRIT 27.1 % (36.0-47.0); HEMOGLOBIN 9.5 g/dl (12.0-15.5); MEAN CORPUSCULAR HEMOGLOBIN 28.4 pg (27.0-33.0); MEAN CORPUSCULAR HGB CONC 35.1 g/dl (32.0-36.5); MEAN CORPUSCULAR VOLUME 80.9 fl (80.0-96.0); PLATELET COUNT, AUTOMATED 152 10^3/uL (150-450); RED BLOOD COUNT 3.35 10^6/uL (4.00-5.40); WHITE BLOOD COUNT 9.2 10^3/uL (4.0-10.0)
[2019-12-17 08:01] LABS: BLOOD UREA NITROGEN 30 MG/DL (7-18); CALCIUM LEVEL 7.9 MG/DL (8.8-10.2); CARBON DIOXIDE LEVEL 31 MEQ/L (21-32); CHLORIDE LEVEL 96 MEQ/L (98-107); GLOMERULAR FILTRATION RATE > 60.0 (>32); GLUCOSE, FASTING 138 MG/DL (70-100); POTASSIUM SERUM 3.9 MEQ/L (3.5-5.1); SODIUM LEVEL 130 MEQ/L (136-145)
[2019-12-17] MEDS: GABAPENTIN 100 MG CAP PO SCH ×2 (09:00→21:00)
[2019-12-17] MEDS: DOCUSATE SODIUM 100 MG CAP PO SCH ×3 (09:00→23:10)
[2019-12-17] MEDS: CALCITONIN NASAL SPRAY 3.7 ML BTL SCH (09:00)
[2019-12-17] MEDS: PANTOPRAZOLE 40MG TAB (PROTONIX) PO SCH (09:00)
[2019-12-17] MEDS: SODIUM CHLORIDE 1 GM TAB PO SCH ×3 (09:00→23:11)
[2019-12-17] MEDS: REMEDY PHYTOPLEX Z-GUARD PASTE 113GM TUBE (FROM STOREROOM PRODUCT) TOP SCH ×3 (09:00→23:16)
[2019-12-17] MEDS: VITAMIN D 1,000 INTERNATIONAL UNITS TABLET PO SCH (09:00)
[2019-12-17] MEDS: **NOTE PATIENT COMMENT** MISC XX SCH (09:00)
[2019-12-17] MEDS: DULoxetine 30 MG CAP (CYMBALTA) PO SCH (09:00)
[2019-12-17] MEDS: HEPARIN SOD (PORCINE) 5000 UNITS/ML VIAL (J1644 PER 1000UNITS) SC SCH ×2 (09:00→23:14)
[2019-12-17] MEDS: ASPIRIN ENTERIC 325 MG TAB PO SCH (09:36)
[2019-12-17] MEDS: TELMISARTAN 20 MG TAB PO SCH (09:36)
[2019-12-17] MEDS: LETROZOLE 2.5 MG TAB PO SCH (09:37)
[2019-12-17] MEDS: PROPRANOLOL 10 MG TAB PO SCH ×3 (09:37→23:14)
[2019-12-17] MEDS: ACETAMINOPHEN 500 MG TAB PO SCH ×3 (09:39→23:10)
[2019-12-17 14:00] VITALS: BP 176/79
[2019-12-17] MEDS: cefTRIAXone SOD 1 GM in D5W MINI-BAG PLUS 50 ML IV SCH (18:00)
[2019-12-17 20:00] VITALS: BP 167/75
[2019-12-17] MEDS: BISACODYL 10 MG SUPP PR SCH (23:09)
[2019-12-17] MEDS: SENNA 8.6 MG TAB (SENOKOT) PO SCH (23:11)
[2019-12-17] MEDS: LIDOCAINE 5% (LIDODERM) PATCH TD SCH (23:11)
[2019-12-17] MEDS: OLANZapine 5 MG TAB PO SCH (23:11)
[2019-12-18] MEDS: NS 1,000 ML IV SCH ×2 (00:01→13:12)
[2019-12-18 06:00] VITALS: BP 179/79
[2019-12-18] MEDS: HumaLOG INSULIN (NovoLOG) PER UNIT SC SCH ×4 (07:30→21:00)
[2019-12-18] MEDS: **NOTE PATIENT COMMENT** MISC XX SCH (09:00)
[2019-12-18] MEDS: REMEDY PHYTOPLEX Z-GUARD PASTE 113GM TUBE (FROM STOREROOM PRODUCT) TOP SCH ×3 (09:00→21:47)
[2019-12-18] MEDS: DULoxetine 30 MG CAP (CYMBALTA) PO SCH (09:00)
[2019-12-18] MEDS: DOCUSATE SODIUM 100 MG CAP PO SCH ×3 (09:53→21:41)
[2019-12-18] MEDS: SODIUM CHLORIDE 1 GM TAB PO SCH ×3 (09:53→21:43)
[2019-12-18] MEDS: TELMISARTAN 20 MG TAB PO SCH (09:53)
[2019-12-18] MEDS: ASPIRIN ENTERIC 325 MG TAB PO SCH (09:53)
[2019-12-18] MEDS: GABAPENTIN 100 MG CAP PO SCH ×2 (09:53→21:43)
[2019-12-18] MEDS: VITAMIN D 1,000 INTERNATIONAL UNITS TABLET PO SCH (09:54)
[2019-12-18] MEDS: PROPRANOLOL 10 MG TAB PO SCH ×3 (09:54→21:42)
[2019-12-18] MEDS: ACETAMINOPHEN 500 MG TAB PO SCH ×3 (09:55→21:43)
[2019-12-18] MEDS: PANTOPRAZOLE 40MG TAB (PROTONIX) PO SCH (09:55)
[2019-12-18] MEDS: HEPARIN SOD (PORCINE) 5000 UNITS/ML VIAL (J1644 PER 1000UNITS) SC SCH ×2 (09:56→21:46)
[2019-12-18] MEDS: LETROZOLE 2.5 MG TAB PO SCH (09:56)
[2019-12-18] MEDS: CALCITONIN NASAL SPRAY 3.7 ML BTL SCH (09:59)
[2019-12-18] MEDS ORDERED: oxyCODONE 5MG TAB PO PRN ×2 (10:45)
--- NOTE | 2019-12-18 13:22 | IPNPDOC ---
Date Seen The patient was seen on 12/18/19. Progress Note I was called to evaluate the patient because of significant altered mental status worsened from her baseline. Patient appeared very dry clinically, was given bolus IV fluids followed by maintenance IV hydration. She has had significant clinical improvement of the past 24 hours, currently alert and oriented 3 and at her baseline level of mentation. Clinically, she appears euvolemic, although her oral intake remains very poor. She had a UA done which is consistent with UTI and was started on ceftriaxone. Patient reports moderate pain in her hips, which is not well controlled with Tylenol. She has no other complaints at this time, denies any shortness of breath, chest pain, nausea, vomiting, abdominal pain or diarrhea. Plan: Continue gentle IV hydration with normal saline at 50 mL per hour until oral intake is adequate, recommend oxycodone for Moderate/severe pain as needed because Tylenol does not seem to be providing enough pain control. UTI: Urine cultures grew pansensitive Escherichia coli, recommend treating with ceftriaxone for a total of 3-5 days. VS, I&O, 24H, Fishbone Vital Signs/I&O Vital Signs Date Time Temp Pulse Resp B/P (MAP) Pulse Ox O2 Delivery O2 Flow Rate FiO2 12/18/19 09:54 70 150/72 12/18/19 06:00 97.2 18 96 Nasal Cannula 2.0 I&O- Last 24 Hours up to 6 AM 12/18/19 06:00 Intake Total 1506 ml Output Total 0 ml Balance 1506 ml Laboratory Data 24H LABS Laboratory Tests 2 12/17/19 16:44: Bedside Glucose (Misc Panel) 106 12/17/19 21:06: Bedside Glucose (Misc Panel) 137H 12/18/19 05:47: Bedside Glucose (Misc Panel) 131H 12/18/19 11:38: Bedside Glucose (Misc Panel) 210H Microbiology Microbiology 12/16/19 Urine Culture - Final, Complete Escherichia Coli RENAE ROBERTSON MD Dec 18, 2019 13:22
[2019-12-18 14:00] VITALS: BP 178/80
[2019-12-18] MEDS: cefTRIAXone SOD 1 GM in D5W MINI-BAG PLUS 50 ML IV SCH (16:25)
[2019-12-18 21:30] VITALS: BP 170/76
[2019-12-18] MEDS: OLANZapine 5 MG TAB PO SCH (21:41)
[2019-12-18] MEDS: SENNA 8.6 MG TAB (SENOKOT) PO SCH (21:42)
[2019-12-18] MEDS: BISACODYL 10 MG SUPP PR SCH (21:45)
[2019-12-18] MEDS: LIDOCAINE 5% (LIDODERM) PATCH TD SCH (21:54)
[2019-12-19 06:05] VITALS: BP 158/72
[2019-12-19 06:45] LABS: BASO # 0.1 10^3/uL (0.0-0.2); BASO % 0.7 % (0.0-1.0); EOS # 0.1 10^3/uL (0.0-0.5); EOS % 1.5 % (0.0-3.0); HEMATOCRIT 26.9 % (36.0-47.0); HEMOGLOBIN 9.5 g/dl (12.0-15.5); LYMPH # 1.3 10^3/uL (1.5-5.0); LYMPH % 15.2 % (24.0-44.0); MEAN CORPUSCULAR HEMOGLOBIN 28.5 pg (27.0-33.0); MEAN CORPUSCULAR HGB CONC 35.3 g/dl (32.0-36.5); MEAN CORPUSCULAR VOLUME 80.8 fl (80.0-96.0); MONO # 0.7 10^3/uL (0.0-0.8); MONO % 8.5 % (0.0-5.0); NEUTROPHILS # 6.2 10^3/uL (1.5-8.5); NEUTROPHILS % 71.6 % (36.0-66.0); PLATELET COUNT, AUTOMATED 186 10^3/uL (150-450); RED BLOOD COUNT 3.33 10^6/uL (4.00-5.40); WHITE BLOOD COUNT 8.6 10^3/uL (4.0-10.0)
[2019-12-19 07:05] LABS: BLOOD UREA NITROGEN 23 MG/DL (7-18); CALCIUM LEVEL 8.5 MG/DL (8.8-10.2); CARBON DIOXIDE LEVEL 32 MEQ/L (21-32); CHLORIDE LEVEL 95 MEQ/L (98-107); CREATININE FOR GFR 0.73 MG/DL (0.55-1.30); GLOMERULAR FILTRATION RATE > 60.0 (>32); GLUCOSE, FASTING 118 MG/DL (70-100); POTASSIUM SERUM 3.7 MEQ/L (3.5-5.1); SODIUM LEVEL 132 MEQ/L (136-145)
[2019-12-19] MEDS: SODIUM CHLORIDE 1 GM TAB PO SCH ×3 (09:00→20:42)
[2019-12-19] MEDS: **NOTE PATIENT COMMENT** MISC XX SCH (09:00)
[2019-12-19] MEDS: DOCUSATE SODIUM 100 MG CAP PO SCH ×3 (10:50→20:40)
[2019-12-19] MEDS: ASPIRIN ENTERIC 325 MG TAB PO SCH (10:50)
[2019-12-19] MEDS: VITAMIN D 1,000 INTERNATIONAL UNITS TABLET PO SCH (10:50)
[2019-12-19] MEDS: HumaLOG INSULIN (NovoLOG) PER UNIT SC SCH ×4 (10:51→20:43)
[2019-12-19] MEDS: TELMISARTAN 20 MG TAB PO SCH (10:51)
[2019-12-19] MEDS: GABAPENTIN 100 MG CAP PO SCH ×2 (10:52→20:42)
[2019-12-19] MEDS: DULoxetine 30 MG CAP (CYMBALTA) PO SCH (10:52)
[2019-12-19] MEDS: PANTOPRAZOLE 40MG TAB (PROTONIX) PO SCH (10:52)
[2019-12-19] MEDS: LETROZOLE 2.5 MG TAB PO SCH (10:52)
[2019-12-19] MEDS: PROPRANOLOL 10 MG TAB PO SCH ×3 (10:53→20:41)
[2019-12-19] MEDS: ACETAMINOPHEN 500 MG TAB PO SCH ×3 (10:54→20:42)
[2019-12-19] MEDS: CALCITONIN NASAL SPRAY 3.7 ML BTL SCH (10:55)
[2019-12-19] MEDS: HEPARIN SOD (PORCINE) 5000 UNITS/ML VIAL (J1644 PER 1000UNITS) SC SCH ×2 (10:55→20:43)
[2019-12-19] MEDS: REMEDY PHYTOPLEX Z-GUARD PASTE 113GM TUBE (FROM STOREROOM PRODUCT) TOP SCH ×3 (10:56→20:45)
[2019-12-19] MEDS: NS 1,000 ML IV SCH (10:57)
[2019-12-19 14:00] VITALS: BP 167/74
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
[2019-12-19] MEDS: cefTRIAXone SOD 1 GM in D5W MINI-BAG PLUS 50 ML IV SCH (16:50)
[2019-12-19 20:00] VITALS: BP 169/77
[2019-12-19] MEDS: OLANZapine 5 MG TAB PO SCH (20:41)
[2019-12-19] MEDS: SENNA 8.6 MG TAB (SENOKOT) PO SCH (20:43)
[2019-12-19] MEDS: LIDOCAINE 5% (LIDODERM) PATCH TD SCH (20:44)
[2019-12-19] MEDS: BISACODYL 10 MG SUPP PR SCH (20:48)
[2019-12-20 06:00] VITALS: BP 173/89
[2019-12-20 06:49] LABS: BASO # 0.1 10^3/uL (0.0-0.2); BASO % 0.8 % (0.0-1.0); EOS # 0.2 10^3/uL (0.0-0.5); EOS % 2.7 % (0.0-3.0); HEMATOCRIT 25.5 % (36.0-47.0); LYMPH # 1.2 10^3/uL (1.5-5.0); LYMPH % 13.7 % (24.0-44.0); MEAN CORPUSCULAR HEMOGLOBIN 28.7 pg (27.0-33.0); MEAN CORPUSCULAR HGB CONC 35.3 g/dl (32.0-36.5); MEAN CORPUSCULAR VOLUME 81.2 fl (80.0-96.0); MONO # 0.8 10^3/uL (0.0-0.8); MONO % 9.3 % (0.0-5.0); NEUTROPHILS # 6.1 10^3/uL (1.5-8.5); NEUTROPHILS % 70.6 % (36.0-66.0); PLATELET COUNT, AUTOMATED 200 10^3/uL (150-450); RED BLOOD COUNT 3.14 10^6/uL (4.00-5.40); WHITE BLOOD COUNT 8.6 10^3/uL (4.0-10.0)
[2019-12-20 07:15] LABS: BLOOD UREA NITROGEN 18 MG/DL (7-18); CALCIUM LEVEL 8.3 MG/DL (8.8-10.2); CARBON DIOXIDE LEVEL 33 MEQ/L (21-32); CHLORIDE LEVEL 93 MEQ/L (98-107); CREATININE FOR GFR 0.72 MG/DL (0.55-1.30); GLOMERULAR FILTRATION RATE > 60.0 (>32); GLUCOSE, FASTING 106 MG/DL (70-100); POTASSIUM SERUM 3.2 MEQ/L (3.5-5.1); SODIUM LEVEL 132 MEQ/L (136-145)
[2019-12-20] MEDS: **NOTE PATIENT COMMENT** MISC XX SCH (09:00)
[2019-12-20] MEDS: LETROZOLE 2.5 MG TAB PO SCH (09:20)
[2019-12-20] MEDS: NS 1,000 ML IV SCH (09:20)
[2019-12-20] MEDS: DULoxetine 30 MG CAP (CYMBALTA) PO SCH (09:21)
[2019-12-20] MEDS: HumaLOG INSULIN (NovoLOG) PER UNIT SC SCH ×4 (09:21→21:00)
[2019-12-20] MEDS: SODIUM CHLORIDE 1 GM TAB PO SCH ×3 (09:21→20:03)
[2019-12-20] MEDS: HEPARIN SOD (PORCINE) 5000 UNITS/ML VIAL (J1644 PER 1000UNITS) SC SCH ×2 (09:21→20:03)
[2019-12-20] MEDS: PROPRANOLOL 10 MG TAB PO SCH ×3 (09:21→20:04)
[2019-12-20] MEDS: PANTOPRAZOLE 40MG TAB (PROTONIX) PO SCH (09:22)
[2019-12-20] MEDS: VITAMIN D 1,000 INTERNATIONAL UNITS TABLET PO SCH (09:22)
[2019-12-20] MEDS: TELMISARTAN 20 MG TAB PO SCH (09:22)
[2019-12-20] MEDS: ACETAMINOPHEN 500 MG TAB PO SCH ×3 (09:22→20:03)
[2019-12-20] MEDS: DOCUSATE SODIUM 100 MG CAP PO SCH ×3 (09:22→20:03)
[2019-12-20] MEDS: ASPIRIN ENTERIC 325 MG TAB PO SCH (09:22)
[2019-12-20] MEDS: GABAPENTIN 100 MG CAP PO SCH ×2 (09:23→20:03)
[2019-12-20] MEDS: CALCITONIN NASAL SPRAY 3.7 ML BTL SCH (09:24)
[2019-12-20] MEDS: REMEDY PHYTOPLEX Z-GUARD PASTE 113GM TUBE (FROM STOREROOM PRODUCT) TOP SCH ×3 (09:24→20:05)
[2019-12-20] MEDS ORDERED: POTASSIUM CHLORIDE 10 MEQ SR TABLET PO ONE (13:30)
[2019-12-20 14:00] VITALS: BP 138/72
[2019-12-20] MEDS: SALIVA SUBSTITUTE(MOUTHKOTE) BTL MT SCH ×2 (15:46→20:04)
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
[2019-12-20] MEDS: SENNA 8.6 MG TAB (SENOKOT) PO SCH (20:03)
[2019-12-20] MEDS: BISACODYL 10 MG SUPP PR SCH (20:04)
[2019-12-20] MEDS: OLANZapine 5 MG TAB PO SCH (20:04)
[2019-12-20] MEDS: LIDOCAINE 5% (LIDODERM) PATCH TD SCH (20:05)
[2019-12-20 20:48] VITALS: BP 160/79
[2019-12-21] MEDS: tiZANidine 4 MG TAB PO PRN ×3 (01:56→20:25)
[2019-12-21 05:57] VITALS: BP 170/90
[2019-12-21 06:20] VITALS: BP 154/80
[2019-12-21 06:54] LABS: BASO % 0.4 % (0.0-1.0); EOS # 0.2 10^3/uL (0.0-0.5); EOS % 1.8 % (0.0-3.0); HEMATOCRIT 24.9 % (36.0-47.0); HEMOGLOBIN 8.4 g/dl (12.0-15.5); LYMPH # 1.1 10^3/uL (1.5-5.0); LYMPH % 12.3 % (24.0-44.0); MEAN CORPUSCULAR HEMOGLOBIN 28.2 pg (27.0-33.0); MEAN CORPUSCULAR HGB CONC 33.7 g/dl (32.0-36.5); MEAN CORPUSCULAR VOLUME 83.6 fl (80.0-96.0); MONO # 0.8 10^3/uL (0.0-0.8); MONO % 8.9 % (0.0-5.0); NEUTROPHILS # 6.6 10^3/uL (1.5-8.5); NEUTROPHILS % 73.8 % (36.0-66.0); PLATELET COUNT, AUTOMATED 177 10^3/uL (150-450); RED BLOOD COUNT 2.98 10^6/uL (4.00-5.40)
[2019-12-21 07:22] LABS: BLOOD UREA NITROGEN 19 MG/DL (7-18); CALCIUM LEVEL 8.3 MG/DL (8.8-10.2); CARBON DIOXIDE LEVEL 35 MEQ/L (21-32); CHLORIDE LEVEL 95 MEQ/L (98-107); CREATININE FOR GFR 0.83 MG/DL (0.55-1.30); GLOMERULAR FILTRATION RATE > 60.0 (>32); GLUCOSE, FASTING 116 MG/DL (70-100); POTASSIUM SERUM 3.8 MEQ/L (3.5-5.1); SODIUM LEVEL 132 MEQ/L (136-145)
[2019-12-21] MEDS: HumaLOG INSULIN (NovoLOG) PER UNIT SC SCH ×4 (07:52→20:06)
[2019-12-21] MEDS: SALIVA SUBSTITUTE(MOUTHKOTE) BTL MT SCH ×4 (07:52→20:36)
[2019-12-21] MEDS: SODIUM CHLORIDE 1 GM TAB PO SCH ×3 (07:53→20:26)
[2019-12-21] MEDS: ASPIRIN ENTERIC 325 MG TAB PO SCH (07:53)
[2019-12-21] MEDS: ACETAMINOPHEN 500 MG TAB PO SCH ×3 (07:53→20:26)
[2019-12-21] MEDS: VITAMIN D 1,000 INTERNATIONAL UNITS TABLET PO SCH (07:53)
[2019-12-21] MEDS: LETROZOLE 2.5 MG TAB PO SCH (07:54)
[2019-12-21] MEDS: DULoxetine 30 MG CAP (CYMBALTA) PO SCH (07:54)
[2019-12-21] MEDS: GABAPENTIN 100 MG CAP PO SCH ×2 (07:54→20:26)
[2019-12-21] MEDS: PANTOPRAZOLE 40MG TAB (PROTONIX) PO SCH (07:54)
[2019-12-21] MEDS: PROPRANOLOL 10 MG TAB PO SCH ×3 (07:54→20:26)
[2019-12-21] MEDS: TELMISARTAN 20 MG TAB PO SCH (07:54)
[2019-12-21] MEDS: DOCUSATE SODIUM 100 MG CAP PO SCH ×3 (07:55→20:25)
[2019-12-21] MEDS: CALCITONIN NASAL SPRAY 3.7 ML BTL SCH (07:55)
[2019-12-21] MEDS: REMEDY PHYTOPLEX Z-GUARD PASTE 113GM TUBE (FROM STOREROOM PRODUCT) TOP SCH ×3 (07:55→20:36)
[2019-12-21] MEDS: **NOTE PATIENT COMMENT** MISC XX SCH (07:56)
[2019-12-21 09:00] VITALS: BP 153/67
[2019-12-21] MEDS: HEPARIN SOD (PORCINE) 5000 UNITS/ML VIAL (J1644 PER 1000UNITS) SC SCH ×2 (09:00→20:36)
--- NOTE | 2019-12-21 12:48 | REP ---
CT ABDOMEN AND PELVIS WITHOUT CONTRAST: CT abdomen and pelvis performed without oral or IV contrast and compared to a prior CT abdomen and pelvis with contrast 12/12/2019. Sagittal and coronal reconstruction images are performed. There are new bilateral mild to moderate pleural effusions in the visualized lung bases with mild adjacent patchy atelectasis or infiltrate. There is cardiomegaly. Liver, spleen, adrenals, pancreas are kidneys are grossly unremarkable. There is no hydronephrosis bilaterally. There is moderate atherosclerotic calcification of the abdominal aorta. There is no adenopathy. There is no free air. There is mild free fluid in the pelvis. There is no bowel wall thickening. There is sigmoid diverticulosis without acute diverticulitis. There is no bowel obstruction. The appendix is normal. I see no pelvic mass. Urinary bladder is grossly unremarkable. Once again, there is a compression fracture noted in the L1 vertebral body with retropulsion of fragments as seen on prior studies. Right transverse process of L1 also demonstrates fracture. There is again noted a fracture of the left transverse process of L2. Incidental note is made of laying sludge or stones in the gallbladder without gallbladder wall edema. IMPRESSION: Cardiomegaly. New bibasilar effusions with adjacent patchy atelectasis/infiltrate. L1 and L2 fractures are again noted unchanged. Mild free fluid in the pelvis. No bowel wall inflammation or evidence of bowel obstruction. Layering stones or sludge in the gallbladder without evidence of gallbladder wall edema. Electronically Signed by Talib Ocasio MD 12/21/2019 05:41 P
[2019-12-21 13:46] LABS: HEMATOCRIT 27.2 % (36.0-47.0); HEMOGLOBIN 9.4 g/dl (12.0-15.5); MEAN CORPUSCULAR HEMOGLOBIN 28.8 pg (27.0-33.0); MEAN CORPUSCULAR HGB CONC 34.6 g/dl (32.0-36.5); MEAN CORPUSCULAR VOLUME 83.4 fl (80.0-96.0); PLATELET COUNT, AUTOMATED 202 10^3/uL (150-450); RED BLOOD COUNT 3.26 10^6/uL (4.00-5.40); WHITE BLOOD COUNT 11.2 10^3/uL (4.0-10.0)
[2019-12-21 14:00] VITALS: BP 155/70
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
[2019-12-21] MEDS: LevoFLOXacin IV 750 MG in IV 1 EA IV SCH (16:35)
[2019-12-21 20:00] VITALS: BP 147/80
[2019-12-21] MEDS: SENNA 8.6 MG TAB (SENOKOT) PO SCH (20:26)
[2019-12-21] MEDS: OLANZapine 5 MG TAB PO SCH (20:26)
[2019-12-21] MEDS: BISACODYL 10 MG SUPP PR SCH (20:26)
[2019-12-21] MEDS: LIDOCAINE 5% (LIDODERM) PATCH TD SCH (20:27)
[2019-12-22 06:00] VITALS: BP 146/81
[2019-12-22] MEDS: HEPARIN SOD (PORCINE) 5000 UNITS/ML VIAL (J1644 PER 1000UNITS) SC SCH ×2 (09:08→21:24)
[2019-12-22] MEDS: DULoxetine 30 MG CAP (CYMBALTA) PO SCH (09:09)
[2019-12-22] MEDS: PANTOPRAZOLE 40MG TAB (PROTONIX) PO SCH (09:09)
[2019-12-22] MEDS: ASPIRIN ENTERIC 325 MG TAB PO SCH (09:09)
[2019-12-22] MEDS: DOCUSATE SODIUM 100 MG CAP PO SCH ×3 (09:09→21:27)
[2019-12-22] MEDS: REMEDY PHYTOPLEX Z-GUARD PASTE 113GM TUBE (FROM STOREROOM PRODUCT) TOP SCH ×3 (09:10→21:27)
[2019-12-22] MEDS: ACETAMINOPHEN 500 MG TAB PO SCH ×3 (09:10→21:26)
[2019-12-22] MEDS: GABAPENTIN 100 MG CAP PO SCH ×2 (09:10→21:25)
[2019-12-22] MEDS: TELMISARTAN 20 MG TAB PO SCH (09:10)
[2019-12-22] MEDS: SODIUM CHLORIDE 1 GM TAB PO SCH ×3 (09:10→21:26)
[2019-12-22] MEDS: VITAMIN D 1,000 INTERNATIONAL UNITS TABLET PO SCH (09:10)
[2019-12-22] MEDS: LETROZOLE 2.5 MG TAB PO SCH (09:10)
[2019-12-22] MEDS: PROPRANOLOL 10 MG TAB PO SCH ×3 (09:10→21:25)
[2019-12-22] MEDS: SALIVA SUBSTITUTE(MOUTHKOTE) BTL MT SCH ×4 (09:11→21:27)
[2019-12-22] MEDS: HumaLOG INSULIN (NovoLOG) PER UNIT SC SCH ×4 (09:11→21:56)
[2019-12-22] MEDS: CALCITONIN NASAL SPRAY 3.7 ML BTL SCH (09:11)
[2019-12-22] MEDS: **NOTE PATIENT COMMENT** MISC XX SCH (09:13)
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
[2019-12-22] MEDS: tiZANidine 4 MG TAB PO PRN (12:34)
[2019-12-22 13:29] LABS: HEMATOCRIT 26.8 % (36.0-47.0); HEMOGLOBIN 9.1 g/dl (12.0-15.5); MEAN CORPUSCULAR HEMOGLOBIN 28.3 pg (27.0-33.0); MEAN CORPUSCULAR VOLUME 83.5 fl (80.0-96.0); PLATELET COUNT, AUTOMATED 207 10^3/uL (150-450); RED BLOOD COUNT 3.21 10^6/uL (4.00-5.40); WHITE BLOOD COUNT 12.6 10^3/uL (4.0-10.0)
[2019-12-22] MEDS: LevoFLOXacin IV 750 MG in IV 1 EA IV SCH (13:45)
[2019-12-22 13:53] LABS: BLOOD UREA NITROGEN 24 MG/DL (7-18); CALCIUM LEVEL 8.7 MG/DL (8.8-10.2); CARBON DIOXIDE LEVEL 34 MEQ/L (21-32); CHLORIDE LEVEL 91 MEQ/L (98-107); CREATININE FOR GFR 0.92 MG/DL (0.55-1.30); GLOMERULAR FILTRATION RATE > 60.0 (>32); GLUCOSE, FASTING 131 MG/DL (70-100); POTASSIUM SERUM 3.9 MEQ/L (3.5-5.1); SODIUM LEVEL 129 MEQ/L (136-145)
[2019-12-22] MEDS: IPRATROPIUM 0.5MG/ALBUTEROL 2.5MG INH SOL UD 3ML (DUONEB)(J7620) NEB SCH ×2 (13:59→20:22)
[2019-12-22 14:00] VITALS: BP 114/57
[2019-12-22] MEDS: guaiFENesin 200 MG TAB PO SCH ×2 (15:14→21:26)
[2019-12-22] MEDS: NS 1,000 ML IV SCH (15:14)
[2019-12-22] MEDS: BISACODYL 10 MG SUPP PR SCH (21:00)
[2019-12-22] MEDS: LIDOCAINE 5% (LIDODERM) PATCH TD SCH (21:24)
[2019-12-22] MEDS: OLANZapine 5 MG TAB PO SCH (21:25)
[2019-12-22] MEDS: SENNA 8.6 MG TAB (SENOKOT) PO SCH (21:26)
[2019-12-22 21:28] VITALS: BP 160/78
[2019-12-23 06:30] VITALS: BP 168/80
[2019-12-23 06:53] LABS: HEMATOCRIT 26.7 % (36.0-47.0); HEMOGLOBIN 8.9 g/dl (12.0-15.5); MEAN CORPUSCULAR HEMOGLOBIN 28.2 pg (27.0-33.0); MEAN CORPUSCULAR HGB CONC 33.3 g/dl (32.0-36.5); MEAN CORPUSCULAR VOLUME 84.5 fl (80.0-96.0); PLATELET COUNT, AUTOMATED 213 10^3/uL (150-450); RED BLOOD COUNT 3.16 10^6/uL (4.00-5.40); WHITE BLOOD COUNT 9.9 10^3/uL (4.0-10.0)
[2019-12-23 07:02] LABS: BLOOD UREA NITROGEN 19 MG/DL (7-18); CALCIUM LEVEL 8.7 MG/DL (8.8-10.2); CARBON DIOXIDE LEVEL 35 MEQ/L (21-32); CHLORIDE LEVEL 97 MEQ/L (98-107); CREATININE FOR GFR 0.86 MG/DL (0.55-1.30); GLOMERULAR FILTRATION RATE > 60.0 (>32); GLUCOSE, FASTING 92 MG/DL (70-100); POTASSIUM SERUM 3.6 MEQ/L (3.5-5.1); SODIUM LEVEL 134 MEQ/L (136-145)
[2019-12-23] MEDS: HumaLOG INSULIN (NovoLOG) PER UNIT SC SCH ×4 (07:30→21:00)
[2019-12-23] MEDS: IPRATROPIUM 0.5MG/ALBUTEROL 2.5MG INH SOL UD 3ML (DUONEB)(J7620) NEB SCH ×3 (08:00→19:38)
[2019-12-23] MEDS: HEPARIN SOD (PORCINE) 5000 UNITS/ML VIAL (J1644 PER 1000UNITS) SC SCH ×2 (08:22→21:15)
[2019-12-23] MEDS: SALIVA SUBSTITUTE(MOUTHKOTE) BTL MT SCH ×4 (08:22→21:55)
[2019-12-23] MEDS: ASPIRIN ENTERIC 325 MG TAB PO SCH (08:23)
[2019-12-23] MEDS: VITAMIN D 1,000 INTERNATIONAL UNITS TABLET PO SCH (08:23)
[2019-12-23] MEDS: guaiFENesin 200 MG TAB PO SCH ×3 (08:23→21:16)
[2019-12-23] MEDS: LETROZOLE 2.5 MG TAB PO SCH (08:23)
[2019-12-23] MEDS: TELMISARTAN 20 MG TAB PO SCH (08:23)
[2019-12-23] MEDS: PANTOPRAZOLE 40MG TAB (PROTONIX) PO SCH (08:23)
[2019-12-23] MEDS: GABAPENTIN 100 MG CAP PO SCH ×2 (08:23→21:16)
[2019-12-23] MEDS: SODIUM CHLORIDE 1 GM TAB PO SCH ×3 (08:23→21:16)
[2019-12-23] MEDS: DULoxetine 30 MG CAP (CYMBALTA) PO SCH (08:23)
[2019-12-23] MEDS: DOCUSATE SODIUM 100 MG CAP PO SCH ×3 (08:24→21:17)
[2019-12-23] MEDS: ACETAMINOPHEN 500 MG TAB PO SCH ×3 (08:24→21:15)
[2019-12-23] MEDS: PROPRANOLOL 10 MG TAB PO SCH ×3 (08:24→21:17)
[2019-12-23] MEDS: CALCITONIN NASAL SPRAY 3.7 ML BTL SCH (08:25)
[2019-12-23] MEDS: **NOTE PATIENT COMMENT** MISC XX SCH (08:26)
[2019-12-23] MEDS: REMEDY PHYTOPLEX Z-GUARD PASTE 113GM TUBE (FROM STOREROOM PRODUCT) TOP SCH ×3 (08:26→21:55)
[2019-12-23] MEDS: NS 1,000 ML IV SCH (08:26)
[2019-12-23 14:00] VITALS: BP 180/82
[2019-12-23] MEDS: LevoFLOXacin IV 750 MG in IV 1 EA IV SCH (15:00)
[2019-12-23] MEDS ORDERED: amLODIPine 10 MG TAB PO ONE (16:00)
[2019-12-23 19:03] VITALS: BP 164/72
[2019-12-23 20:30] VITALS: BP 162/78
[2019-12-23] MEDS: BISACODYL 10 MG SUPP PR SCH (21:00)
[2019-12-23] MEDS: LIDOCAINE 5% (LIDODERM) PATCH TD SCH (21:15)
[2019-12-23] MEDS: OLANZapine 5 MG TAB PO SCH (21:16)
[2019-12-23] MEDS: SENNA 8.6 MG TAB (SENOKOT) PO SCH (21:17)
[2019-12-24 05:28] VITALS: BP 168/86
[2019-12-24] MEDS: NS 1,000 ML IV SCH (06:00)
[2019-12-24 07:27] LABS: HEMATOCRIT 28.3 % (36.0-47.0); HEMOGLOBIN 9.2 g/dl (12.0-15.5); MEAN CORPUSCULAR HEMOGLOBIN 28.3 pg (27.0-33.0); MEAN CORPUSCULAR HGB CONC 32.5 g/dl (32.0-36.5); MEAN CORPUSCULAR VOLUME 87.1 fl (80.0-96.0); PLATELET COUNT, AUTOMATED 215 10^3/uL (150-450); RED BLOOD COUNT 3.25 10^6/uL (4.00-5.40); WHITE BLOOD COUNT 10.5 10^3/uL (4.0-10.0)
[2019-12-24] MEDS: IPRATROPIUM 0.5MG/ALBUTEROL 2.5MG INH SOL UD 3ML (DUONEB)(J7620) NEB SCH (07:28)
[2019-12-24] MEDS: HumaLOG INSULIN (NovoLOG) PER UNIT SC SCH ×2 (07:30→12:00)
[2019-12-24 07:54] LABS: BLOOD UREA NITROGEN 17 MG/DL (7-18); CALCIUM LEVEL 8.3 MG/DL (8.8-10.2); CARBON DIOXIDE LEVEL 38 MEQ/L (21-32); CHLORIDE LEVEL 97 MEQ/L (98-107); CREATININE FOR GFR 0.74 MG/DL (0.55-1.30); GLOMERULAR FILTRATION RATE > 60.0 (>32); GLUCOSE, FASTING 107 MG/DL (70-100); POTASSIUM SERUM 3.6 MEQ/L (3.5-5.1); SODIUM LEVEL 136 MEQ/L (136-145)
[2019-12-24] MEDS: DOCUSATE SODIUM 100 MG CAP PO SCH (09:00)
[2019-12-24] MEDS: REMEDY PHYTOPLEX Z-GUARD PASTE 113GM TUBE (FROM STOREROOM PRODUCT) TOP SCH (09:00)
[2019-12-24] MEDS: **NOTE PATIENT COMMENT** MISC XX SCH (09:00)
[2019-12-24] MEDS ORDERED: amLODIPine 10 MG TAB PO SCH (09:00)
[2019-12-24] MEDS: TELMISARTAN 20 MG TAB PO SCH (11:56)
[2019-12-24] MEDS: SODIUM CHLORIDE 1 GM TAB PO SCH (11:56)
[2019-12-24] MEDS: PANTOPRAZOLE 40MG TAB (PROTONIX) PO SCH (11:56)
[2019-12-24] MEDS: VITAMIN D 1,000 INTERNATIONAL UNITS TABLET PO SCH (11:56)
[2019-12-24] MEDS: ASPIRIN ENTERIC 325 MG TAB PO SCH (11:56)
[2019-12-24] MEDS: SALIVA SUBSTITUTE(MOUTHKOTE) BTL MT SCH ×2 (11:56→12:14)
[2019-12-24 11:57] VITALS: BP 200/99
[2019-12-24] MEDS: guaiFENesin 200 MG TAB PO SCH (11:57)
[2019-12-24] MEDS: PROPRANOLOL 10 MG TAB PO SCH (11:57)
[2019-12-24] MEDS: CALCITONIN NASAL SPRAY 3.7 ML BTL SCH (11:58)
[2019-12-24] MEDS: HEPARIN SOD (PORCINE) 5000 UNITS/ML VIAL (J1644 PER 1000UNITS) SC SCH (11:59)
[2019-12-24] MEDS: DULoxetine 30 MG CAP (CYMBALTA) PO SCH (12:02)
[2019-12-24] MEDS: LETROZOLE 2.5 MG TAB PO SCH (12:02)
[2019-12-24] MEDS: GABAPENTIN 100 MG CAP PO SCH (12:03)
[2019-12-24] MEDS: ACETAMINOPHEN 500 MG TAB PO SCH (12:03)
[2019-12-24] MEDS ORDERED: KETOROLAC TROMETHAMINE 10 MG TAB PO PRN (13:00)
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
[2019-12-24 14:00] VITALS: BP 153/67
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
== END 2019-12-24 14:36 | disposition short-term general hospital (02) | DRG 862 ==
LOC: M PM&R 17:45
PROVIDERS: ADMIT Physical Medicine & Rehabilitation; ATTEND Physical Medicine & Rehabilitation
DX: S32.019D Unspecified fracture of first lumbar vertebra, subsequent encounter for fracture with routine healing (principal); E87.1 Hypo-osmolality and hyponatremia; E11.9 Type 2 diabetes mellitus without complications; S22.42XD Multiple fractures of ribs, left side, subsequent encounter for fracture with routine healing; I10 Essential (primary) hypertension; M81.0 Age-related osteoporosis without current pathological fracture; Z85.3 Personal history of malignant neoplasm of breast; Z51.5 Encounter for palliative care; Z91.14 Patient's other noncompliance with medication regimen; Z91.19 Patient's noncompliance with other medical treatment and regimen

== ENCOUNTER 2019-12-24 13:47 | Inpatient (IN) | payer OTHER, MEDICARE ==
[~2019-12-24] VITALS: Ht 162.6 cm; Wt 80.3 kg
[2019-12-24] MEDS ORDERED: ATROPINE SULFATE 1% OP SOLN 2 ML BTL SL PRN (15:15)
[2019-12-24] MEDS ORDERED: ACETAMINOPHEN TAB 650MG DOSE (2X325MG) PO PRN (15:15)
[2019-12-24] MEDS ORDERED: HYOSCYAMINE SULFATE 0.125 MG SUBL TABLET PO PRN (15:15)
[2019-12-24] MEDS ORDERED: LORazepam 2 MG/ML VIAL (J2060) IV PRN (15:15)
[2019-12-24] MEDS ORDERED: ONDANSETRON 4MG/2ML VIAL (J2405) IV PRN (15:15)
[2019-12-24] MEDS ORDERED: SCOPOLAMINE 1MG TRANSDERMAL PATCH TOP PRN (15:15)
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
[2019-12-24] MEDS: KETOROLAC TROMETHAMINE 10 MG TAB PO PRN (22:12)
[2019-12-25] MEDS: MORPHINE 2 MG/ML 1ML VIAL (J2270) IV PRN ×4 (07:15→13:38)
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
[2019-12-25] MEDS: KETOROLAC TROMETHAMINE 10 MG TAB PO PRN (14:33)
[2019-12-25] MEDS ORDERED: PILL CUTTER 1 EACH XX PRN (15:15)
[2019-12-25] MEDS: LORazepam 1 MG TAB PO PRN (16:34)
[2019-12-25] MEDS: tiZANidine 4 MG TAB PO PRN (16:35)
[2019-12-26] MEDS: MORPHINE 2 MG/ML 1ML VIAL (J2270) IV PRN (03:49)
[2019-12-26] MEDS: LORazepam 1 MG TAB PO PRN ×3 (04:38→18:58)
[2019-12-26] MEDS: tiZANidine 4 MG TAB PO PRN ×3 (04:39→18:58)
[2019-12-26] MEDS: SENOKOT S TAB PO SCH (11:14)
[2019-12-26] MEDS ORDERED: ONDANSETRON 4 MG ORAL DISINTEGRATING TAB (Q0162 PER 1MG) SL PRN (11:15)
[2019-12-26] MEDS ORDERED: ONDANSETRON 4 MG ORAL DISINTEGRATING TAB (Q0162 PER 1MG) SL SCH (12:00)
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
[2019-12-26] MEDS: LevoFLOXacin 750 MG TABLET PO SCH (13:30)
[2019-12-26] MEDS: MORPHINE 10MG/0.5ML ORAL CONCENTRATE SOLUTION U/D SL PRN ×2 (15:23→22:34)
[2019-12-26] MEDS: KETOROLAC TROMETHAMINE 10 MG TAB PO PRN (23:09)
[2019-12-27] MEDS: MORPHINE 10MG/0.5ML ORAL CONCENTRATE SOLUTION U/D SL PRN ×4 (01:52→23:11)
[2019-12-27] MEDS: tiZANidine 4 MG TAB PO PRN (06:37)
[2019-12-27] MEDS: LevoFLOXacin 750 MG TABLET PO SCH (06:37)
[2019-12-27] MEDS: SENOKOT S TAB PO SCH (08:29)
[2019-12-27] MEDS: LORazepam 1 MG TAB PO PRN ×3 (09:24→23:12)
[2019-12-27] MEDS ORDERED: SCOP1PAT2 TOP (12:25)
[2019-12-27] MEDS ORDERED: HYOS125TA PO (12:25)
[2019-12-27] MEDS ORDERED: KETO10TAB PO (12:25)
[2019-12-27] MEDS ORDERED: SENN-52 PO (12:25)
[2019-12-27] MEDS ORDERED: ATIV1TAB7 PO (12:25)
[2019-12-27] MEDS ORDERED: MORP20SO3 PO (12:25)
[2019-12-27] MEDS ORDERED: TIZA4TAB4 PO (12:25)
[2019-12-27] MEDS ORDERED: LEVA750T7 PO (12:25)
[2019-12-27] MEDS ORDERED: ONDA4TAB6 SL (12:25)
[2019-12-28] MEDS: tiZANidine 4 MG TAB PO PRN (02:29)
[2019-12-28] MEDS: LevoFLOXacin 750 MG TABLET PO SCH (06:41)
[2019-12-28] MEDS: SENOKOT S TAB PO SCH (08:43)
[2019-12-28] MEDS: LORazepam 1 MG TAB PO PRN (09:39)
[2019-12-28] MEDS: MORPHINE 10MG/0.5ML ORAL CONCENTRATE SOLUTION U/D SL PRN (09:40)
== END 2019-12-28 10:00 | disposition home or self-care (01) | DRG 862 ==
LOC: M MSPAV 13:47 → UNDODISIN 14:53
PROVIDERS: ADMIT Internal Medicine; ATTEND Internal Medicine
DX: Z51.5 Encounter for palliative care (principal); J18.9 Pneumonia, unspecified organism; S22.42XD Multiple fractures of ribs, left side, subsequent encounter for fracture with routine healing; S32.011D Stable burst fracture of first lumbar vertebra, subsequent encounter for fracture with routine healing; R62.7 Adult failure to thrive; Z85.3 Personal history of malignant neoplasm of breast; Z87.891 Personal history of nicotine dependence

== ENCOUNTER 2020-01-23 13:13 | Inpatient (IN) | payer MEDICARE, OTHER ==
[~2020-01-23] VITALS: Ht 170.2 cm; Wt 64.2 kg
[~2020-01-23 13:13] MED LIST changes: +ATIV1TAB7 PO; +HYOS125TA PO; +KETO10TAB PO; +LEVA750T7 PO; +MORP20SO3 PO; +ONDA4TAB6 SL; +SCOP1PAT2 TOP; +SENN-52 PO; +TIZA4TAB4 PO
[2020-01-23] MEDS ORDERED: NON-325T5 PO (13:53)
[2020-01-23] MEDS ORDERED: SENN1TAB96 PO (13:53)
[2020-01-23] MEDS: NS 1,000 ML IV SCH ×2 (14:28→20:21)
[2020-01-23 14:36] LABS: BASO # 0.1 10^3/uL (0.0-0.2); BASO % 1.1 % (0.0-1.0); EOS # 0.3 10^3/uL (0.0-0.5); EOS % 3.9 % (0.0-3.0); HEMATOCRIT 33.8 % (36.0-47.0); LYMPH # 1.3 10^3/uL (1.5-5.0); MEAN CORPUSCULAR HEMOGLOBIN 27.1 pg (27.0-33.0); MEAN CORPUSCULAR HGB CONC 32.5 g/dl (32.0-36.5); MEAN CORPUSCULAR VOLUME 83.3 fl (80.0-96.0); MONO # 0.6 10^3/uL (0.0-0.8); MONO % 7.6 % (0.0-5.0); NEUTROPHILS # 5.8 10^3/uL (1.5-8.5); NEUTROPHILS % 70.6 % (36.0-66.0); PLATELET COUNT, AUTOMATED 267 10^3/uL (150-450); RED BLOOD COUNT 4.06 10^6/uL (4.00-5.40); WHITE BLOOD COUNT 8.3 10^3/uL (4.0-10.0)
--- NOTE | 2020-01-23 14:36 | REP ---
CHEST, SINGLE VIEW: Single view of the chest is performed. Comparison: 12/12/2019. There is mild cardiomegaly. There is mild interstitial prominence unchanged. No focal infiltrate is seen. There is calcification and tortuosity of the thoracic aorta. Mediastinal silhouette is unchanged. There are degenerative changes of the spine. IMPRESSION: Mild cardiomegaly. No acute infiltrate. Electronically Signed by Talib Ocasio MD 01/23/2020 05:01 P
[2020-01-23] MEDS ORDERED: LORA1TAB4 PO (14:41)
[2020-01-23] MEDS ORDERED: ACET-897 PO (14:41)
[2020-01-23] MEDS ORDERED: TIZA4TAB4 PO (14:41)
[2020-01-23 14:47] LABS: INR 1.17; PROTHROMBIN TIME 14.6 SECONDS (11.8-14.0)
--- NOTE | 2020-01-23 14:52 | REP ---
CT BRAIN WITHOUT CONTRAST: CT brain performed without IV contrast. COMPARISON: 12/12/2019. Coronal reconstruction images are performed. There is moderate atrophy and preventricular small vessel ischemic changes, stable. There is no midline shift or mass effect. There is no acute intracranial hemorrhage. There is no extra-axial fluid collection. There are vascular calcifications of the carotid siphons. Visualized mastoid air cells and paranasal sinuses are clear. IMPRESSION: Stable atrophy and chronic periventricular small vessel ischemic changes. No acute intracranial hemorrhage, midline shift, or mass effect. Electronically Signed by Talib Ocasio MD 01/23/2020 05:02 P
[2020-01-23 15:04] LABS: ALBUMIN 3.2 GM/DL (3.2-5.2); ALT/SGPT 11 U/L (12-78); BILIRUBIN,DIRECT 0.1 MG/DL (0.0-0.2); BILIRUBIN,TOTAL 0.3 MG/DL (0.2-1.0); BLOOD UREA NITROGEN 21 MG/DL (7-18); CALCIUM LEVEL 9.5 MG/DL (8.8-10.2); CARBON DIOXIDE LEVEL 31 MEQ/L (21-32); CHLORIDE LEVEL 101 MEQ/L (98-107); CK-MB VALUE MASS < 1.0 NG/ML (<3.6); CPK CREATINE PHOSPHOKINASE 18 U/L (26-192); CREATININE FOR GFR 0.85 MG/DL (0.55-1.30); FREE T4 1.37 NG/DL (0.76-1.46); GLOMERULAR FILTRATION RATE > 60.0 (>32); GLUCOSE, FASTING 151 MG/DL (70-100); LIPASE 79 U/L (73-393); MB/CK RELATIVE INDEX 5.56 (< OR =4); NT-PRO BNP 1837 PG/ML (<450); POTASSIUM SERUM 3.7 MEQ/L (3.5-5.1); SODIUM LEVEL 136 MEQ/L (136-145); TOTAL PROTEIN 6.3 GM/DL (6.4-8.2); TROPONIN I 0.02 NG/ML (< 0.10)
[2020-01-23] MEDS ORDERED: ACETAMINOPHEN TAB 650MG DOSE (2X325MG) PO PRN (16:45)
[2020-01-23] MEDS ORDERED: MOM 30ML SUSPENSION UDC PO PRN (16:45)
[2020-01-23] MEDS ORDERED: MAALOX 30 ML SUSP *UDC PO PRN (16:45)
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
[2020-01-23] MEDS ORDERED: ACETAMINOPHEN 500 MG TAB PO PRN (17:00)
[2020-01-23] MEDS ORDERED: tiZANidine 4 MG TAB PO PRN (17:00)
[2020-01-23] MEDS ORDERED: PILL CUTTER 1 EACH XX PRN (17:15)
[2020-01-23 18:00] VITALS: BP 154/82
[2020-01-23] MEDS: HEPARIN SOD (PORCINE) 5000UNITS/ML VIAL (J1644 PER 1000UNITS) SC SCH (20:22)
[2020-01-23 22:00] VITALS: BP 147/80
[2020-01-24] MEDS: NS 1,000 ML IV SCH ×2 (03:02→09:53)
--- NOTE | 2020-01-24 03:23 | ECGEPIP ---
[facility] - ED Test Date: 2020-01-23 Pat Name: KRYSTIN DE SANTIAGO Department: Room: - Gender: Female Communication Engineer: susan : 1935 Requested By: Chante Ching Order Number: [id number] Reading MD: Newton Worley Measurements Intervals [place] Rate: 102 P: NC: 0 QRS: 57 QRSD: 90 T: 59 QT: 338 QTc: 441 Interpretive Statements ATRIAL FIBRILLATION WITH RAPID VENTRICULAR RESPONSE WITH ABERRANT CONDUCTION OR VE VENTRICULAR PREMATURE COMPLEXES Baseline artifact Previous tracing done 07-06-16 was sinus Electronically Signed on 01-24-2020 3:23:18 EDT by Newton Worley
[2020-01-24 06:00] VITALS: BP 140/78
[2020-01-24 06:50] LABS: HEMATOCRIT 33.3 % (36.0-47.0); HEMOGLOBIN 10.7 g/dl (12.0-15.5); MEAN CORPUSCULAR HEMOGLOBIN 27.3 pg (27.0-33.0); MEAN CORPUSCULAR HGB CONC 32.1 g/dl (32.0-36.5); MEAN CORPUSCULAR VOLUME 84.9 fl (80.0-96.0); PLATELET COUNT, AUTOMATED 256 10^3/uL (150-450); RED BLOOD COUNT 3.92 10^6/uL (4.00-5.40)
[2020-01-24 07:19] LABS: ALBUMIN 2.9 GM/DL (3.2-5.2); ALT/SGPT 13 U/L (12-78); BILIRUBIN,TOTAL 0.4 MG/DL (0.2-1.0); BLOOD UREA NITROGEN 14 MG/DL (7-18); CALCIUM LEVEL 8.9 MG/DL (8.8-10.2); CARBON DIOXIDE LEVEL 29 MEQ/L (21-32); CHLORIDE LEVEL 105 MEQ/L (98-107); CREATININE FOR GFR 0.66 MG/DL (0.55-1.30); GLOMERULAR FILTRATION RATE > 60.0 (>32); GLUCOSE, FASTING 87 MG/DL (70-100); MAGNESIUM LEVEL 1.8 MG/DL (1.8-2.4); POTASSIUM SERUM 3.8 MEQ/L (3.5-5.1); SODIUM LEVEL 141 MEQ/L (136-145); TOTAL PROTEIN 6.1 GM/DL (6.4-8.2)
[2020-01-24] MEDS: HEPARIN SOD (PORCINE) 5000UNITS/ML VIAL (J1644 PER 1000UNITS) SC SCH ×2 (09:53→20:19)
[2020-01-24] MEDS: SENOKOT S TAB PO SCH (09:53)
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
[2020-01-24 14:00] VITALS: BP 159/78
[2020-01-24 22:00] VITALS: BP 142/76
[2020-01-25 06:00] VITALS: BP 133/89
[2020-01-25 07:07] LABS: HEMATOCRIT 33.7 % (36.0-47.0); MEAN CORPUSCULAR HEMOGLOBIN 27.2 pg (27.0-33.0); MEAN CORPUSCULAR HGB CONC 32.6 g/dl (32.0-36.5); MEAN CORPUSCULAR VOLUME 83.4 fl (80.0-96.0); PLATELET COUNT, AUTOMATED 267 10^3/uL (150-450); RED BLOOD COUNT 4.04 10^6/uL (4.00-5.40); WHITE BLOOD COUNT 7.9 10^3/uL (4.0-10.0)
[2020-01-25 07:33] LABS: ALBUMIN 3.1 GM/DL (3.2-5.2); ALT/SGPT 11 U/L (12-78); BILIRUBIN,TOTAL 0.4 MG/DL (0.2-1.0); BLOOD UREA NITROGEN 13 MG/DL (7-18); CALCIUM LEVEL 9.5 MG/DL (8.8-10.2); CARBON DIOXIDE LEVEL 30 MEQ/L (21-32); CHLORIDE LEVEL 100 MEQ/L (98-107); CREATININE FOR GFR 0.57 MG/DL (0.55-1.30); GLOMERULAR FILTRATION RATE > 60.0 (>32); GLUCOSE, FASTING 85 MG/DL (70-100); MAGNESIUM LEVEL 1.8 MG/DL (1.8-2.4); POTASSIUM SERUM 3.6 MEQ/L (3.5-5.1); SODIUM LEVEL 136 MEQ/L (136-145); TOTAL PROTEIN 6.1 GM/DL (6.4-8.2)
[2020-01-25] MEDS: HEPARIN SOD (PORCINE) 5000UNITS/ML VIAL (J1644 PER 1000UNITS) SC SCH (09:17)
[2020-01-25] MEDS: SENOKOT S TAB PO SCH (09:17)
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
== END 2020-01-25 13:51 | DRG 948 ==
LOC: M ED 13:13 → EDBD 13:13 → M ED INP 16:43 → ENRESERV 17:02 → M MSPAV 18:01
PROVIDERS: ADMIT Internal Medicine; ATTEND Internal Medicine
DX: R53.81 Other malaise (principal); I10 Essential (primary) hypertension; E11.9 Type 2 diabetes mellitus without complications; Z79.899 Other long term (current) drug therapy; Z85.3 Personal history of malignant neoplasm of breast; M81.0 Age-related osteoporosis without current pathological fracture

== ENCOUNTER → 2020-02-01 | Outpatient (REF) ==
[~2020-02-01] MED LIST changes: +ACET-897 PO; +LORA1TAB4 PO; +NON-325T5 PO; +SENN1TAB96 PO
[2020-02-01 09:13] LABS: HEMOGLOBIN A1c 5.9 %
== END ==
LOC: SKLAB3 07:00
PROVIDERS: ATTEND Internal Medicine
DX: E11.9 Type 2 diabetes mellitus without complications (principal)

== ENCOUNTER → 2020-02-13 | Outpatient (REF) | LOC: SKLAB3 10:08 | PROVIDERS: ATTEND Internal Medicine | DX: Z03.818 Encounter for observation for suspected exposure to other biological agents ruled out (principal) ==

== ENCOUNTER → 2020-04-02 | Outpatient (REF) | payer OTHER ==
[~2020-04-02] MED LIST changes: +D31000TA2 PO; -VITAD1000T PO
--- NOTE | 2020-04-04 08:38 | ECGEPIP ---
[facility] Test Date: 2020-04-02 Pat Name: KRYSTIN DE SANTIAGO Department: Room: - Gender: Female Desktop Manager: JAYEHS : 1935 Requested By: Ezra Alonzo Order Number: [id number] Reading MD: Dai Mukherjee Measurements Intervals [place] Rate: 99 P: 79 CA: 155 QRS: 76 QRSD: 89 T: 79 QT: 331 QTc: 425 Interpretive Statements SINUS RHYTHM WITH FREQUENT VENTRICULAR PREMATURE COMPLEXES POSSIBLE LEFT ATRIAL ENLARGEMENT ABNORMAL RHYTHM ECG SIMILAR TO 01/23/20 (INCORRECTLY REPORTED ATRIAL FIBRILLATION) Electronically Signed on 04-04-2020 8:38:22 EDT by Dai Mukherjee
== END ==
LOC: SKLAB3 08:22
PROVIDERS: ATTEND Internal Medicine
DX: Z86.73 Personal history of transient ischemic attack (TIA), and cerebral infarction without residual deficits (principal)

== ENCOUNTER → 2020-05-28 | Outpatient (CLI) | payer MEDICARE, OTHER ==
[2020-05-28 16:41] LABS: BASO # 0.1 10^3/uL (0.0-0.2); BASO % 1.1 % (0.0-1.0); EOS # 0.2 10^3/uL (0.0-0.5); EOS % 2.4 % (0.0-3.0); HEMATOCRIT 42.9 % (36.0-47.0); HEMOGLOBIN 13.3 g/dl (12.0-15.5); LYMPH # 1.7 10^3/uL (1.5-5.0); LYMPH % 22.1 % (24.0-44.0); MEAN CORPUSCULAR HEMOGLOBIN 26.4 pg (27.0-33.0); MEAN CORPUSCULAR VOLUME 85.1 fl (80.0-96.0); MONO # 0.5 10^3/uL (0.0-0.8); NEUTROPHILS # 5.1 10^3/uL (1.5-8.5); NEUTROPHILS % 67.1 % (36.0-66.0); PLATELET COUNT, AUTOMATED 189 10^3/uL (150-450); RED BLOOD COUNT 5.04 10^6/uL (4.00-5.40); WHITE BLOOD COUNT 7.5 10^3/uL (4.0-10.0)
[2020-05-28 17:55] LABS: HEMOGLOBIN A1c 5.7 %
[2020-05-28 18:28] LABS: MAU/CREAT RATIO 72.3 MCG/MG (0.0-30.0)
[2020-05-28 18:29] LABS: ALBUMIN 3.7 GM/DL (3.2-5.2); BILIRUBIN,TOTAL 0.5 MG/DL (0.2-1.0); CALCIUM LEVEL 9.9 MG/DL (8.8-10.2); CHOLESTEROL RISK RATIO 5.081 (<5); CREATININE FOR GFR 0.99 MG/DL (0.55-1.30); GLOMERULAR FILTRATION RATE 56.8 (>32); POTASSIUM SERUM 4.4 MEQ/L (3.5-5.1); THYROID STIMULATING HORMONE 0.909 uIU/ML (0.358-3.740); TOTAL PROTEIN 6.9 GM/DL (6.4-8.2)
== END ==
LOC: M WUC 10:00
PROVIDERS: ATTEND Physician Assistant
DX: E11.8 Type 2 diabetes mellitus with unspecified complications (principal); I10 Essential (primary) hypertension

== ENCOUNTER → 2021-03-04 | Outpatient (REF) | payer MEDICARE, OTHER ==
[~2021-03-04] MED LIST changes: +ACET32TAB PO; +LISI10TA22 PO; -LISI10TA4 PO; -NON-325T5 PO
[2021-03-04 17:57] LABS: BASO # 0.1 10^3/uL (0.0-0.2); BASO % 0.8 % (0.0-1.0); EOS # 0.2 10^3/uL (0.0-0.5); EOS % 2.9 % (0.0-3.0); HEMOGLOBIN 13.5 g/dl (12.0-15.5); LYMPH # 1.7 10^3/uL (1.5-5.0); LYMPH % 20.4 % (24.0-44.0); MEAN CORPUSCULAR HGB CONC 32.1 g/dl (32.0-36.5); MEAN CORPUSCULAR VOLUME 90.3 fl (80.0-96.0); MONO # 0.7 10^3/uL (0.0-0.8); MONO % 7.9 % (2.0-8.0); NEUTROPHILS # 5.6 10^3/uL (1.5-8.5); NEUTROPHILS % 67.4 % (36.0-66.0); PLATELET COUNT, AUTOMATED 176 10^3/uL (150-450); RED BLOOD COUNT 4.65 10^6/uL (4.00-5.40); WHITE BLOOD COUNT 8.3 10^3/uL (4.0-10.0)
[2021-03-04 18:16] LABS: HEMOGLOBIN A1c 5.2 %
[2021-03-04 18:37] LABS: ALBUMIN 3.9 GM/DL (3.2-5.2); ALT/SGPT 23 U/L (12-78); BILIRUBIN,TOTAL 0.7 MG/DL (0.2-1.0); BLOOD UREA NITROGEN 37 MG/DL (7-18); CARBON DIOXIDE LEVEL 31 MEQ/L (21-32); CHLORIDE LEVEL 106 MEQ/L (98-107); CREATININE FOR GFR 0.86 MG/DL (0.55-1.30); FERRITIN 88 NG/ML (8-252); GLOMERULAR FILTRATION RATE > 60.0 (>32); GLUCOSE, FASTING 94 MG/DL (70-100); IRON (FE) 85 UG/DL (50-170); SODIUM LEVEL 142 MEQ/L (136-145)
[2021-03-04 18:38] LABS: CHOLESTEROL RISK RATIO 3.844 (<5); THYROID STIMULATING HORMONE 1.63 uIU/ML (0.358-3.740)
== END ==
LOC: M SFHCCAPE 07:39
PROVIDERS: ATTEND Physician Assistant
DX: R79.89 Other specified abnormal findings of blood chemistry (principal); I10 Essential (primary) hypertension; E11.65 Type 2 diabetes mellitus with hyperglycemia; E78.2 Mixed hyperlipidemia

== ENCOUNTER → 2021-10-09 | Outpatient (REF) | payer MEDICARE, OTHER ==
[~2021-10-09] MED LIST changes: +MORP1SOL5 PO; -MORP20SO3 PO; -SCOP1PAT2 TOP; +TIZA10TA PO; -TIZA4TAB4 PO; +TRAN1DIS4 TOP
[2021-10-09 15:55] LABS: BASO # 0.1 10^3/uL (0.0-0.2); BASO % 1.1 % (0.0-1.0); EOS # 0.3 10^3/uL (0.0-0.5); EOS % 3.3 % (0.0-3.0); HEMATOCRIT 42.6 % (36.0-47.0); HEMOGLOBIN 13.4 g/dl (12.0-15.5); LYMPH # 1.7 10^3/uL (1.5-5.0); LYMPH % 21.8 % (24.0-44.0); MEAN CORPUSCULAR HEMOGLOBIN 27.8 pg (27.0-33.0); MEAN CORPUSCULAR HGB CONC 31.5 g/dl (32.0-36.5); MEAN CORPUSCULAR VOLUME 88.4 fl (80.0-96.0); MONO # 0.7 10^3/uL (0.0-0.8); MONO % 8.4 % (2.0-8.0); NEUTROPHILS # 5.2 10^3/uL (1.5-8.5); NEUTROPHILS % 64.9 % (36.0-66.0); PLATELET COUNT, AUTOMATED 197 10^3/uL (150-450); RED BLOOD COUNT 4.82 10^6/uL (4.00-5.40)
[2021-10-09 16:02] LABS: ALBUMIN 3.8 GM/DL (3.2-5.2); BILIRUBIN,TOTAL 0.4 MG/DL (0.2-1.0); CALCIUM LEVEL 9.4 MG/DL (8.8-10.2); CHOLESTEROL RISK RATIO 4.894 (<5); CREATININE FOR GFR 1.12 MG/DL (0.55-1.30); GLOMERULAR FILTRATION RATE 49.1 (>32); POTASSIUM SERUM 3.8 MEQ/L (3.5-5.1); THYROID STIMULATING HORMONE 1.76 uIU/ML (0.358-3.740); TOTAL PROTEIN 7.2 GM/DL (6.4-8.2)
[2021-10-09 16:23] LABS: HEMOGLOBIN A1c 5.5 %
[2021-10-09 16:24] LABS: MAU/CREAT RATIO 58.5 MCG/MG (0.0-30.0)
== END ==
LOC: M SFHCCAPE 08:10
PROVIDERS: ATTEND Physician Assistant
DX: E11.65 Type 2 diabetes mellitus with hyperglycemia (principal); I10 Essential (primary) hypertension

== ENCOUNTER → 2022-01-06 | Outpatient (REF) | payer MEDICARE, OTHER ==
[~2022-01-06] MED LIST changes: -D31000TA2 PO; +VITA100093 PO
[2022-01-06 16:07] LABS: BASO # 0.1 10^3/uL (0.0-0.2); BASO % 0.8 % (0.0-1.0); EOS # 0.3 10^3/uL (0.0-0.5); EOS % 2.9 % (0.0-3.0); HEMATOCRIT 40.6 % (36.0-47.0); HEMOGLOBIN 13.1 g/dl (12.0-15.5); LYMPH # 1.8 10^3/uL (1.5-5.0); LYMPH % 20.8 % (24.0-44.0); MEAN CORPUSCULAR HEMOGLOBIN 27.9 pg (27.0-33.0); MEAN CORPUSCULAR HGB CONC 32.3 g/dl (32.0-36.5); MEAN CORPUSCULAR VOLUME 86.6 fl (80.0-96.0); MONO # 0.8 10^3/uL (0.0-0.8); MONO % 9.1 % (2.0-8.0); NEUTROPHILS # 5.7 10^3/uL (1.5-8.5); NEUTROPHILS % 65.8 % (36.0-66.0); PLATELET COUNT, AUTOMATED 188 10^3/uL (150-450); RED BLOOD COUNT 4.69 10^6/uL (4.00-5.40); WHITE BLOOD COUNT 8.7 10^3/uL (4.0-10.0)
[2022-01-06 16:26] LABS: ALBUMIN 3.9 GM/DL (3.2-5.2); BILIRUBIN,TOTAL 0.6 MG/DL (0.2-1.0); CALCIUM LEVEL 9.4 MG/DL (8.8-10.2); CHOLESTEROL RISK RATIO 4.025 (<5); CREATININE FOR GFR 0.97 MG/DL (0.55-1.30); POTASSIUM SERUM 4.2 MEQ/L (3.5-5.1)
[2022-01-06 17:03] LABS: HEMOGLOBIN A1c 5.8 %
[2022-01-08 11:32] LABS: % LABILE ALKALINE PHOSPHATASE 64.4 %
== END ==
LOC: M SFHCCAPE 07:32
PROVIDERS: ATTEND Physician Assistant
DX: E11.65 Type 2 diabetes mellitus with hyperglycemia (principal); I10 Essential (primary) hypertension

== ENCOUNTER → 2022-02-11 | Outpatient (REF) | payer MEDICARE, OTHER ==
[2022-02-11 16:53] LABS: ALBUMIN 3.6 GM/DL (3.2-5.2); BILIRUBIN,TOTAL 0.5 MG/DL (0.2-1.0); CALCIUM LEVEL 9.4 MG/DL (8.8-10.2); CREATININE FOR GFR 1.01 MG/DL (0.55-1.30); GLOMERULAR FILTRATION RATE 55.3 (>32); POTASSIUM SERUM 4.4 MEQ/L (3.5-5.1); TOTAL PROTEIN 6.8 GM/DL (6.4-8.2)
[2022-02-11 17:21] LABS: BASO # 0.1 10^3/uL (0.0-0.2); BASO % 0.8 % (0.0-1.0); EOS # 0.3 10^3/uL (0.0-0.5); EOS % 4.1 % (0.0-3.0); HEMOGLOBIN 12.7 g/dl (12.0-15.5); LYMPH # 1.6 10^3/uL (1.5-5.0); LYMPH % 19.8 % (24.0-44.0); MEAN CORPUSCULAR HEMOGLOBIN 27.8 pg (27.0-33.0); MEAN CORPUSCULAR HGB CONC 31.8 g/dl (32.0-36.5); MEAN CORPUSCULAR VOLUME 87.5 fl (80.0-96.0); MONO # 0.6 10^3/uL (0.0-0.8); MONO % 7.5 % (2.0-8.0); NEUTROPHILS # 5.6 10^3/uL (1.5-8.5); PLATELET COUNT, AUTOMATED 197 10^3/uL (150-450); RED BLOOD COUNT 4.57 10^6/uL (4.00-5.40); WHITE BLOOD COUNT 8.3 10^3/uL (4.0-10.0)
== END ==
LOC: M SFHCCAPE 07:41
PROVIDERS: ATTEND Physician Assistant
DX: I10 Essential (primary) hypertension (principal)

== ENCOUNTER → 2022-02-12 | Outpatient (CLI) | payer MEDICARE, OTHER | LOC: M RAD 08:35 | PROVIDERS: ATTEND Physician Assistant | DX: R74.8 Abnormal levels of other serum enzymes (principal); R59.0 Localized enlarged lymph nodes ==

== ENCOUNTER → 2022-04-13 | Outpatient (REF) | payer MEDICARE, OTHER ==
[2022-04-13 21:11] LABS: CREATININE FOR GFR 0.99 MG/DL (0.55-1.30); GLOMERULAR FILTRATION RATE 56.5 (>32)
== END ==
LOC: M SFHCCAPE 07:59
PROVIDERS: ATTEND Physician Assistant
DX: R74.8 Abnormal levels of other serum enzymes (principal)

== ENCOUNTER 2022-06-12 08:15 | Outpatient (RCR) | payer MEDICARE, OTHER | END 2022-07-03 | LOC: M OT 08:15 | PROVIDERS: ATTEND Physician Assistant | DX: Z78.9 Other specified health status (principal) ==